=== PATIENT | female | born 1985 | race Caucasian/White ===

== ENCOUNTER 2021-11-30 15:56 | Outpatient (CLI) | payer OTHER, SELFPAY ==
[2021-11-30 16:15] LABS: Hematocrit 36.1 % (37.0-47.0); Hemoglobin 12.1 g/dL (12.0-15.0); Mean Corpuscular HGB Conc 33.5 g/dl (32-36); Mean Corpuscular Hemoglobin 33.7 pg (26-34); Mean Corpuscular Volume 100.6 fl (80-100); Mean Platelet Volume 9.7 fl (7.4-10.4); Platelet Count Result 247 k/mm3 (150-375); Red Blood Count 3.59 M/mm3 (4.2-5.4); Red Cell Distribution Width 13.1 % (11.5-14.5)
[2021-12-01 09:57] LABS: Rapid Plasma Reagin Non-Reactive (NonReactive)
== END 2021-11-30 15:57 | disposition home or self-care (01) ==
LOC: ANHLAB 15:59
PROVIDERS: PCP Internal Medicine; Visit Provider Obstetrics & Gynecology
DX: O34.219 Maternal care for unspecified type scar from previous cesarean delivery (principal); Z3A.39 39 weeks gestation of pregnancy
CPT/HCPCS: 36415; 85027; 86592; 86850; 86900; 86901

== ENCOUNTER 2021-12-01 09:41 | Inpatient (IN) | payer OTHER, SELFPAY ==
[2021-12-01] VITALS (43 sets, daily range): BP systolic 104–133; BP diastolic 64–92; PULSE 57–93; RESP 13–18; TEMP 36.1–36.6; O2SAT 97–100; BMI 33.3
--- NOTE | 2021-12-01 10:12 | P.PNAN_ITS ---
Anes - Initial Pre Proc Eval Procedure: Operation Date: 12/01/21 12:00 Proposed Procedures p Repeat Section with Bilateral Tubal Ligation - Enoch Hooks MD Date/Time: 12/01/21 10:12 Surgeon: Enoch Hooks MD Pre Op Diagnosis: C/S Patient Data Age: 36 Gender: F Height: 1.65 m Weight: 91 kg Allergies Allergy/AdvReac Type Severity Reaction Status Date / Time No Known Allergies Allergy Unverified 11/10/13 15:06 Home Medications Medication Instructions Recorded Confirmed Type PNV cmb#95-ferrous fumarate-FA 1 tablet PO DAILY 11/06/21 11/06/21 History [] Patient hx anesthesia problems: none Family hx anesthesia problems: none Results Review: All pre-operative results and documents have been reviewed as part of the pre-operative evaluation. [facility] Surgical History Surgical History History of delivery Social History Social History Smoking status: Never smoker Substance use: never Spiritual care concerns: No Anes - Eval Final PreProcedure Day of Procedure 12/01/21 10:12 Patient weight: obese Heart: regular rate and rhythm Lungs: clear to auscultation and normal air movement Airway: Mallampati scale class II Neurological: alert and oriented Last oral intake: >/= 8 hours ASA classification: II Emergent: no Anesthetic plan: proceed Anesthesia type and monitoring: regional spinal and standard monitoring Results Review: All pre-operative results and documents have been reviewed as part of the pre-operative evaluation. Informed Consent: The patient's anesthetic plan and its attendant risks and benefits were discussed with the patient/family/POA. Questions were solicited and answers provided to the satisfaction of the patient/family/POA.
--- NOTE | 2021-12-01 10:35 | LDADM ---
This patient, Tasia Grande, was admitted to Labor/Delivery/Recovery 119 on 12/01/21 at 09:41. Plans for labor, pain management and were discussed with patient. Patient/family oriented to hospital policies and general routines including ID bracelet, bed and alarms, visiting hours, pain management, procedures, bathroom and other care routines, personal items, smoking policy, room service/diet and guest tray routines, infant security routines, and visiting hours. Patient/Family are encouraged to report perceived risks to care and to ask questions if they do not understand what they are told or what they should do. See OBIX for further documentation.
[2021-12-01] MEDS: LACTATED RINGERS 250 ML 999 ML IVPB (10:44)
--- NOTE | 2021-12-01 11:25 | PM.IMHP ---
H&P: HPI History of Present Illness Date/Time: 12/01/21 11:25 36 y/o at 39 weeks gestation here for repeat . GBS neg. She desires repeat and also wants permanent contraception with tubal ligation. Chief Complaint: Here for c section Review of Systems Review of Systems: All systems reviewed & are unremarkable except as noted in HPI and below PMFSH Surgical History Surgical History History of delivery Social History Social History Smoking status: Never smoker Substance use: never Spiritual care concerns: No Meds Home Medications and Allergies Home Medications Medication Instructions Recorded Confirmed Type PNV cmb#95-ferrous fumarate-FA 1 tablet PO DAILY 11/06/21 11/06/21 History [] Allergies Allergy/AdvReac Type Severity Reaction Status Date / Time No Known Allergies Allergy Unverified 11/10/13 15:06 Vital Signs Vital Signs - 24 hr 12/01/21 10:39 12/01/21 10:45 12/01/21 11:01 Pulse Rate 89 88 93 Blood Pressure 125/79 119/65 117/78 12/01/21 11:15 Pulse Rate 78 Blood Pressure 123/69 Exam Const: Orientation/consciousness: patient oriented x3 Other: Well-developed, well-nourished female in no acute distress. Neck: Thyroid: thyroid normal Lymphatic: no lymphadenopathy noted (in neck, axilla or inguinal nodes) Resp: Effort & Inspection: normal respiratory effort Auscultation: clear to auscultation bilaterally Cardio: Rate: regular rate Rhythm: regular rhythm Heart sounds: S1 normal heart sound present and S2 normal heart sound present GI: Other: ABD: Soft, nontender, gravid. No guarding or rebound tenderness. No hepatosplenomegaly. FHR 150 bpm. : General: Yes no CVA tenderness Other: Cervix closed, thick. Back/Spine/Pelvis: Back: no CVA tenderness Skin: General skin exam: normal color and no rashes or lesions noted Neuro: General: patient oriented x3 Extrem: Other: Extremities: nontender with no edema Psych: Mental Status: mental status grossly normal Affect: normal affect Assessment and Plan Assessment and plan (1) History of delivery: Code(s): Z98.891 - History of uterine scar from previous surgery Status: Inactive Assessment and Plan: A: IUP at 39 weeks with prior , desires repeat. Desired sterility. P: She understands there are temporary methods of contraception available to her. She understands that there are nonsurgical options as well as surgical options. She understands that tubal ligation will render her permanently sterile. She understands that there is a failure rate associated with tubal ligation, as well as an inherent ectopic gestation risk. Furthermore, she understands risks of surgery to include risks of anesthesia, risks of pain, infection, bleeding, blood products, thromboembolic phenomena and damage to adjacent structures such as bowel, bladder, ureters, blood vessels and nerves. She understands all these risks and elects to proceed with repeat delivery with concurrent bilateral tubal ligation. She has received the ACOG pamphlet on surgical sterilization. (2) Unwanted fertility: Code(s): Z30.09 - Encounter for other general counseling and advice on contraception Status: Acute
--- NOTE | 2021-12-01 11:51 | WPDHPUPDATE1 ---
History and Physical Update Update Date/Time: 12/01/21 11:51 History and Physical has been reviewed, including an updated exam of the patient. There are NO changes in the patient's condition. Risks, benefits, and alternatives have been discussed and questions answered. Patient agrees to proceed with procedure.
--- NOTE | 2021-12-01 13:05 | PM.OBPRVD ---
OB - Delivery Note Procedure Delivery date: 12/01/21 Procedure: Procedures Operation Date: 12/01/21 12:00 Actual Procedure Side Surgeon p Repeat Section with Bilateral Tubal Ligation Enoch Hooks MD Delivery monitor: external FHT and external uterine Route of delivery: Specimen: Yes (cord blood) Quantitative Blood Loss (ml): 505 Anesthesia type: Spinal Disposition: PACU Complications: None Narrative: The patient was taken to the operating room where she was prepared and draped in the usual sterile fashion in dorsal supine position with a leftward tilt. She received cefazolin preoperatively. Spinal anesthesia was found to be adequate. A Pfannenstiel skin incision was made along the previous scar line and was carried through to the underlying layer of the fascia. The fascia was incised in the midline and the incision was extended laterally. The fascia was dissected free of the underlying rectus muscles. The rectus muscles were in the midline. The peritoneum was identified, tented up and entered sharply. The peritoneal incision was extended superiorly and inferiorly with good visualization of the bladder. The bladder blade was placed. The vesicouterine peritoneum was identified, tented up and entered sharply. The incision was extended laterally and the bladder flap was developed. The bladder blade was replaced. The uterus was then incised sharply in a transverse fashion along the lower uterine segment. The incision was extended laterally. The 's breech was delivered to the level of the scapulae. The arms were swept across the chest and delivered. The head was gently flexed and easily delivered. The nose and mouth were bulb suctioned. After a delay, the cord was clamped and cut. The was handed off the field. Cord blood was collected. The placenta was removed manually and was passed off the field. The uterus was exteriorized and cleared of all clots and debris. The uterine incision was reapproximated using 0 Monocryl in a running, locked fashion. A second, imbricating layer of the same suture was run. Hemaderm was applied to the bladder flap. Excellent hemostasis resulted as did excellent reapproximation of the normal anatomy. The left fallopian tube was then identified by following it out to the fimbriated end. It was grasped in the midportion with a [place] clamp and a loop of tube was ligated with a free tie of 0 plain gut. The tubal segment was then transected and the specimen was passed off to be sent to pathology. Hemostasis was excellent. Attention was turned to the right fallopian tube which was similarly identified, ligated and transected. Once again, excellent hemostasis resulted. The uterus was returned the abdomen. The pelvis was irrigated copiously with warmed normal saline. Rigorous hemostasis was assured. The fascial layer was reapproximated using 0 Vicryl in a running fashion. The skin was closed with a running, subcuticular stitch of 4 0 Vicryl. Dermaflex was applied externally. Sponge, lap, needle and instrument counts were correct. The patient was taken to the recovery room in stable condition. The infant went to the nursery in stable condition. I was present and scrubbed the entire procedure. [place] [facility] Date of : 12/01/21 Time of : 12:20 Weeks of gestation at delivery: 39 gender: Female Weight (pounds): 7 Weight (ounces): 13 presentation: breech Placenta delivery description: Manual Removal and Normal Configuration cord vessel description: 3 Vessels and Delayed Cord Clamping score one minute: 8 score five minutes: 9
--- NOTE | 2021-12-01 13:08 | PM.OBDSVD ---
DS: Admitting Diagnosis Discharge Date 12/03/21 Admitting Diagnosis IUP at 39 weeks Prior Desired sterility DS: Discharge Diagnosis Discharge Diagnosis (1) delivery delivered: Code(s): O82 - Encounter for delivery without indication Status: Acute (2) Unwanted fertility: Code(s): Z30.09 - Encounter for other general counseling and advice on contraception Status: Acute OB - DS: Summary OB Procedures : None OB Procedures Intrapartum: and Tubal ligation OB Procedures: : None Peripartum Data Procedures: Procedures Operation Date: 12/01/21 12:00 Actual Procedure Side Surgeon p Repeat Section with Bilateral Tubal Ligation Enoch Hooks MD Discharge Plan Discharge Attending physician on discharge: Enoch Hooks Discharging Clinician: Enoch Hooks Patient Disposition: Home, Self-Care Activity: may shower, may drive after 2 weeks and pelvic rest Diet: regular Wound Care Instructions: incision open to air Discharge Instructions: Education: Mom and Baby Guide Given to: Mother Follow-Up: Call your delivering provider's office for an appointment to be seen in: 1 Week Mom and baby should come to the [facility] for the follow-up appointment. Appointment Date/Time: December 05, 2021 at 11:00 am What to expect at your follow-up visit: Blood Pressure Check Physical Assessment Call [phone] if you are unable to keep your appointment time. BREAST CARE: * Wear a snug supportive bra. * For engorgement discomfort: Bottle Feeding: * May apply ice packs ABDOMINAL INCISION: (if applicable) * Allow incision to air dry * Do NOT use lotions for powders on your incision * When showering, allow soap and water to run over the incision, but do not wash incision EPISIOTOMY/PERINEAL CARE: * Until bleeding stops, use your stephani bottle after urinating * Change your pad frequently throughout the day * You may take sitz baths several times a day (fill your bathtub with warm water and soak for 20 minutes.) Do NOT bathe in the water * No tub baths until seen by your physician - You may shower ACTIVITY: * Rest as much as possible. * Do not exercise or lift anything heavier than your baby (such as laundry or other children.) * Avoid stairs or driving as much as possible. * Do not put anything into the vagina. No douching, tampons, or sexual activity until seen by physician. NOTIFY PHYSICIAN IF YOU HAVE ANY QUESTIONS OR IF ANY OF THE FOLLOWING SYMPTOMS OCCUR: * If your incision becomes red, swollen, or more painful than what you have experienced in the hospital. * If your vaginal bleeding becomes foul smelling. * If your vaginal bleeding becomes more heavy than a period or if your bleeding changes from the color it is now to bright crayon red . However, you may pass an occasional walnut-sized clot once or twice for the first week . * If you experience a sharp, shooting pain in your calves. * If you discover a hard, reddened area on your breast or if you experience flu-like symptoms. DIET: * Eat regular, well-balanced meals. * Drink plenty of fluids daily. Call or return if temperature above 100.4? F, increased abdominal pain, increased vaginal bleeding or any new problems. Patient Instructions: Caring for Your Baby (DC) Stand Alone Forms: General Discharge Information Follow-up/Referrals: Enoch Hooks MD [Physician] - 4 Weeks Discharge Medications: New ibuprofen 600 mg tablet 600 mg PO Q6H PRN (Reason: cramps) Qty: 30 RF: 0 hydrocodone-acetaminophen 5-325 mg tablet 1 - 2 tablet PO Q6H Qty: 30 RF: 0 Continued PNV cmb#95-ferrous fumarate-FA [] 28 mg iron- 800 mcg Tablet 1 tablet PO DAILY RF: 0 Date of admission: 12/01/21 09:41 Primary Care Provider: Erna,Scott Palumbo Admitting Provider: Enoch Hooks
[2021-12-01] MEDS: KETOROLAC 30 MG/ML VIAL (*BKC) IM (13:27)
[2021-12-01] MEDS: OXYTOCIN 30 UNITS/NS 500 ML 30 UNITS/500 ML BAG 125 UNITS IV CONT (13:34)
--- NOTE | 2021-12-01 15:17 | PC.NURSE ---
Patient transferred to post room #284 per stretcher. Support person present. Oriented to unit, room, information board, rooming in, admission packet and security measures. Patient verbalizes understanding.
[2021-12-01] MEDS: HYDROcodone/acetaminophen (*CRX) 5-325 MG TABLET 1 TAB PO (16:13)
[2021-12-01] MEDS: DOCUSATE SODIUM 100 MG CAPSULE PO (19:15)
[2021-12-01] MEDS: SIMETHICONE 80 MG TAB.CHEW PO (19:15)
[2021-12-01] MEDS: HYDROcodone/acetaminophen (*CRX) 10-325 MG TABLET 1 TAB PO ×2 (19:15→23:22)
[2021-12-01] MEDS: IBUPROFEN 600 MG TABLET PO (19:16)
[2021-12-02] VITALS: BP 114/72; PULSE 70; RESP 18; TEMP 36.9
[2021-12-02] MEDS: HYDROcodone/acetaminophen (*CRX) 10-325 MG TABLET 1 TAB PO ×5 (03:18→23:20)
[2021-12-02] MEDS: IBUPROFEN 600 MG TABLET PO ×3 (03:18→18:52)
[2021-12-02 04:11] VITALS: BP 102/60; PULSE 84; RESP 18; TEMP 36.9
[2021-12-02 04:18] LABS: Basophils Percent Auto 0.4 % (0.2-1.2); Eosinophils Absolute Auto 0.1 K/mm3 (0-0.3); Eosinophils Percent Auto 1.2 % (0-4.4); Hematocrit 29.9 % (37.0-47.0); Hemoglobin 10.1 g/dL (12.0-15.0); Immature Granulocyte Absolute 0.03 K/mm3 (0.00-0.031); Immature Granulocyte Percent A 0.3 % (0-0.5); Lymphocytes Absolute Auto 1.73 K/mm3 (0.9-3.2); Lymphocytes Percent Auto 18.2 % (18.3-44.2); Mean Corpuscular HGB Conc 33.8 g/dl (32-36); Mean Corpuscular Hemoglobin 34.2 pg (26-34); Mean Corpuscular Volume 101.4 fl (80-100); Mean Platelet Volume 10.2 fl (7.4-10.4); Monocytes Absolute Auto 0.6 K/mm3 (0.1-0.6); Monocytes Percent Auto 6.3 % (2.6-8.5); Neutrophils Percent Auto 73.6 % (45.5-73.1); Platelet Count Result 206 k/mm3 (150-375); Red Blood Count 2.95 M/mm3 (4.2-5.4); Red Cell Distribution Width 13.3 % (11.5-14.5); White Blood Count 9.5 K/mm3 (4.5-10.0)
[2021-12-02] MEDS: SIMETHICONE 80 MG TAB.CHEW PO ×3 (06:56→15:27)
[2021-12-02] MEDS: DOCUSATE SODIUM 100 MG CAPSULE PO ×2 (06:57→18:52)
[2021-12-02 07:15] VITALS: BP 102/69; PULSE 75; RESP 16; RESP 18; TEMP 36.9; O2SAT 98
--- NOTE | 2021-12-02 08:45 | PM.OBPNVD ---
OB - PN: Subj Subjective Date/time seen: 12/02/21 08:45 Narrative: Pain OK. Tolerating diet. OB - PN: Obj Data Labs CBC & Chem 7: 12/02/21 03:20 Labs: Laboratory Results - last 24 hr 12/02/21 03:20 WBC 9.5 RBC 2.95 L Hgb 10.1 L Hct 29.9 L MCV 101.4 H MCH 34.2 H MCHC 33.8 RDW 13.3 Plt Count 206 MPV 10.2 Immature Gran % (Auto) 0.3 Neut % (Auto) 73.6 H Lymph % (Auto) 18.2 L [place] % (Auto) 6.3 Eos % (Auto) 1.2 Baso % (Auto) 0.4 Lymph # (Auto) 1.73 [place] # (Auto) 0.6 Eos # (Auto) 0.1 Baso # (Auto) 0.0 Abs Immat Gran (auto) 0.03 Absolute Neuts (auto) 7.0 H Absolute Nucleated RBC 0.0 Nucleated RBC % 0.0 OB - PN A/P Plan Comments: A: POD#1, doing well. P: Routine care. Exam Narrative: AVSS I/O OK ABD soft, nontender, fundus firm. Incision c/d/i. EXT nontender
--- NOTE | 2021-12-02 08:49 | WPDANLDPN2 ---
Anes-Prog Note L&D Date/Time: 12/02/21 08:49 Comfortable throughout: section Neuraxial method: spinal Epidural/Spinal procedure site: clean & non-tender Neuro status: Neuro function grossly intact. Cardiovascular status: normal Respiratory status: normal Airway patency: baseline Mental status: baseline Post-Op hydration status: normal Vital Signs: Last Vital Signs Temp 98.4 F 12/02/21 07:15 Pulse 75 12/02/21 07:15 Resp 16 12/02/21 07:15 BP 102/69 12/02/21 07:15 Pulse Ox 98 12/02/21 07:15 Pain score (VAS): 0 I/O: Intake & Output 12/01/21 12/02/21 12/02/21 23:59 07:59 15:59 Intake Total 900 1000 Output Total 325 550 Balance 575 450 Post-procedural complaints: pruritis mild, no treatment and other (pt unable to void) Patient feedback: Patient satisfied with anesthetic care.
--- NOTE | 2021-12-02 08:50 | WPDANLDNPN2 ---
Anes-Prog Note L&D-Neuraxial Date/Time: 12/02/21 08:50 Neuraxial medications: intrathecal PF morphine Opiod-related complaints: pruritis mild, no treatment Patient feedback: Patient satisfied with post-operative pain management.
[2021-12-02] MEDS: HYDROcodone/acetaminophen (*CRX) 5-325 MG TABLET 1 TAB PO (10:55)
[2021-12-02 12:30] VITALS: BP 99/67; PULSE 75; PULSE 85; RESP 16; RESP 18; TEMP 36.6; O2SAT 98
[2021-12-02 19:00] VITALS: BP 121/83; PULSE 95; RESP 16; TEMP 36.2
[2021-12-03] MEDS: HYDROcodone/acetaminophen (*CRX) 5-325 MG TABLET 1 TAB PO ×2 (03:10→10:43)
[2021-12-03] MEDS: IBUPROFEN 600 MG TABLET PO ×2 (03:10→10:43)
[2021-12-03 07:15] VITALS: PULSE 102; RESP 16; O2SAT 98
[2021-12-03 08:00] VITALS: BP 133/90; PULSE 102; RESP 16; TEMP 36.3
--- NOTE | 2021-12-03 10:12 | PM.OBPNVD ---
OB - PN: Subj Subjective Date/time seen: 12/03/21 10:12 Narrative: Pain OK. Tolerating diet. Urinary retention resolved after one catheterization. Voiding freely now. Would like to go home. OB - PN: Obj Data Labs CBC & Chem 7: 12/02/21 03:20 OB - PN A/P Plan Comments: A: POD#2, doing well. P: Home to f/u 4 weeks. Exam Narrative: AVSS ABD soft, nontender, fundus firm. Incision c/d/i. EXT nontender
[2021-12-03] MEDS: SIMETHICONE 80 MG TAB.CHEW PO (10:43)
[2021-12-05 11:20] VITALS: BP 145/86; PULSE 72; RESP 20; TEMP 36.8; O2SAT 100
== END 2021-12-03 11:10 | disposition home or self-care (01) | DRG 785 ==
LOC: ANHLDR 13:10 → ANHOB2 15:24
PROVIDERS: Admitting Provider Obstetrics & Gynecology; PCP Internal Medicine; Visit Provider Obstetrics & Gynecology
PROC: 10D00Z1 Extraction of Products of Conception, Low, Open Approach (ICD-10-PCS; CPT 59514; principal; 2021-12-01 12:00)
DX: O34.219 Maternal care for unspecified type scar from previous cesarean delivery (principal); Z30.2 Encounter for sterilization; O32.1XX0 Maternal care for breech presentation, not applicable or unspecified; Z3A.39 39 weeks gestation of pregnancy; Z37.0 Single live birth
CPT/HCPCS: 36415; 85025; 85027; 86592; 86850; 86900; 86901; 88302; A9270; J0131; J1885; J2274; J2370; J2405; J2590; J7120

== ENCOUNTER 2023-06-21 14:31 | Outpatient (CLI) | payer OTHER, SELFPAY ==
--- NOTE | 2023-06-21 15:18 | PCRCNOTE ---
PFT TESTING NOT COMPLETED TODAY. PT HAS BEEN TAKING PREDNISONE PO SINCE 06/03. SHE WILL FINISH HER LAST DOSE 06/26. PT CONCERNED OF INACCURATE PFT RESULTS DUE TO THE PRESENT STEROID USE. STATED PREDNISONE MAY MASK UNDERLINING LUNG FUNCTION ABNORMALITIES AND BEST TO COMPLETE PFT WITHOUT IF POSSIBLE. CALLED DR SARMIENTO, SPOKE TO NEHA MCKENZIE, WE RESCHEDULED HER PFT ON 07/17 AT 9:30 AND REQUESTED A NEW PFT ORDER TO INCLUDE BRONCHODILATOR TO ASSESS AIRWAY REVERSIBILITY
== END 2023-06-21 14:32 | disposition home or self-care (01) ==
LOC: ANHPFT 14:31
PROVIDERS: PCP Nurse Practitioner Family; Visit Provider Physician Assistant Medical
DX: J45.909 Unspecified asthma, uncomplicated (principal)
CPT/HCPCS: 99199

== ENCOUNTER → 2023-07-05 11:09 | Outpatient (CLI) | payer OTHER, SELFPAY ==
--- NOTE | ~2023-07-05 | CT_ITS ---
EXAMINATION: CT sinus wo con DATE: 07/05/2023 11:26 INDICATION: Chronic sinusitis TECHNIQUE: Computed tomography (CT) of the paranasal sinuses was performed without intravenous contra st. The dose-length product (DLP) was 288.85 mGy-cm. Iterative reconstruction was used. COMPARISON: None FINDINGS: Pansinus moderate mucosal thickening. Complete opacification of the right frontal sinus. Hy perdense material present in the lumen of the right frontal, several ethmoid, and left maxillary sinu ses. Aerated secretion/small air-fluid level in the left maxillary sinus. The bilateral ostiomeatal c omplexes are opacified/obstructed. Visualized soft tissues are unremarkable. IMPRESSION: Acute on chronic pansinusitis. Bilateral OMU opacification/obstruction. Reviewed, dictated and finalized at location K.
== END ==
PROVIDERS: PCP Physician Assistant Medical; Visit Provider Allergy & Immunology
DX: J32.9 Chronic sinusitis, unspecified (principal)
CPT/HCPCS: 70486

== ENCOUNTER 2023-07-17 09:19 | Outpatient (CLI) | payer OTHER, SELFPAY ==
--- NOTE | 2023-07-17 13:43 | WPDPFTINT ---
PFT Procedure Performed PFT Procedure Performed Spirometry with Pre/Post Bronchodilator Plethysmography (Lung Vol) Diffusing Cap (DLCO) Flow Vol Loop PFT Interpretation This is a pulmonary function test with pre and post-bronchodilator spirometry, plethysmography and diffusing capacity. The test was performed and results interpreted in accordance with the 2019 and 2005 ATS/ERS Task Force guidelines respectively using the Global Lung Function Initiative-2012 reference equations. Patient demonstrated good effort and cooperation. Reproducibility criteria were met. The quality of the pre bronchodilator spirometry maneuver was Grade A and post bronchodilator spirometry maneuver was Grade A. Findings: Spirometry: There is decreased maximal expiratory airflow at all lung volumes with concave expiratory flow tracing. The contour the inspiratory flow tracing is normal. The pre bronchodilator FVC is 3.42 L, 89% predicted. The pre bronchodilator FEV1 is 2.24 L, 71% predicted. The pre bronchodilator FEV1: FVC ratio 66%. The post bronchodilator FVC is 3.55 L, representing a 4% increase. The post bronchodilator FEV1 is 2.31 L, representing a 3% increase. The post bronchodilator FEV1: FVC ratio 65%. Plethysmography: The total lung capacity is 4.48 L, 86% predicted. The functional residual capacity is 2.21 L, 77% predicted. The residual volume is 1.06 L, 66% predicted. Diffusing capacity: The diffusing capacity unadjusted for hemoglobin and carboxyhemoglobin is 26.7, 109% predicted. The diffusing capacity adjusted for alveolar volume is 4.72, 100% predicted. Impression: There is a mild obstructive abnormality without significant improvement after inhaling a single dose of albuterol. The lung volumes are normal. The diffusing capacity is normal. There are no prior studies for comparison
== END 2023-07-17 09:20 | disposition home or self-care (01) ==
PROVIDERS: PCP Physician Assistant Medical; Visit Provider Physician Assistant Medical
DX: J45.909 Unspecified asthma, uncomplicated (principal)
CPT/HCPCS: 94060; 94726; 94729

== ENCOUNTER 2023-09-12 13:17 | Outpatient (CLI) | payer OTHER, SELFPAY ==
--- NOTE | 2023-09-12 13:26 | ECG_ITS ---
Measurements Intervals [place] Rate: 74 P: 50 FL: 124 QRS: 29 QRSD: 90 T: 22 QT: 378 QTc: 422 Interpretive Statements SINUS RHYTHM BASELINE ARTIFACT NORMAL ECG NO PREVIOUS ECG AVAILABLE FOR COMPARISON Electronically Signed On 09-12-2023 17:23:25 CDT by Crow Judd M.D.
== END 2023-09-12 13:18 | disposition home or self-care (01) ==
PROVIDERS: PCP Physician Assistant Medical; Visit Provider Otolaryngology
DX: I10 Essential (primary) hypertension (principal); Z01.818 Encounter for other preprocedural examination
CPT/HCPCS: 93005

== ENCOUNTER 2023-09-17 01:44 | Day surgery (SDC) | payer OTHER, SELFPAY ==
[2023-09-06 10:42] VITALS: BMI 24.1
--- NOTE | 2023-09-06 10:47 | PC.NURSE ---
Report to the Outpatient Waiting Room, entrance under the green pavilion located off [facility], at time _0630_ on date _[id number]_. Planned Procedure Time: _0830_. Time changes happen often and if your time is changed the preop area will call you the afternoon before. - You and your visitor will be asked to self-screen and do not enter if you have any COVID symptoms. - A mask is optional within the hospital at this time. Patients may have clear liquids (water, carbonated beverages, clear teas, apple juice) until 3 hours prior to surgery with a maximum of 20 ounces. - No food from midnight until time of surgery Take the following medications with a SIP of water the morning of surgery: __Lexapro DO NOT STOP ANY OF YOUR OTHER PRESCRIPTION MEDICATIONS PRIOR TO SURGERY ?EXCEPT THE FOLLOWING Medications to discontinue per physician Ozempic Date to take last [id number] Please no make-up, nail latvian, hairspray, perfume, deodorant, or body powder the day of surgery. No jewelry (including any body piercings) or valuables the day of surgery, leave them at home. Please take a shower or bath the night before, or the morning of, surgery with an antibacterial soap. Wear comfortable, loose fitting clothing. - Jewelry must be removed prior to entering the operating room. Rings and piercings that are not removed may be cut off. - The hospital will not accept responsibility for valuables. - Please leave all valuables, including medications, at home the day of surgery. If you are going home after surgery, a licensed route delivery driver must drive you home. - NO public transportation without another adult if you receive anesthesia. - We recommend that an adult stay with you for 24 hours following discharge. - We also recommend that you do not drive, make important decision, drink alcoholic beverages, or take any drugs that were not prescribed by your health care provider for at least 24 hours after your discharge time. Follow any additional instructions given to you from your surgeon. If you or anyone in your household have experienced Covid symptoms in the past week, please notify your surgeon or the nurse liaison at the phone number below for possible testing. Telephone instructions given to _Tasia___and asked if any additional questions and then verbalized understanding. Patient advised to call surgeon office or pre surgery nurse liaison [phone] if any additional questions.
--- NOTE | 2023-09-16 13:47 | WPDANESEPPF ---
Anes - Initial Pre Proc Eval Procedure: Operation Date: 09/17/23 08:30 Proposed Procedures p Endoscopic Septoplasty, - Minh Jeronimo MD s Bilateral Inferior Turbinectomy with Outfracture, Bilateral Maxillary Antrostomy with Tissue Removal, Bilateral Total Ethmoidectomy, Bilateral Sphenoidotomy, Bilateral Frontal Sinusotomy - Minh Jeronimo MD Date/Time: 09/16/23 13:47 Surgeon: Minh Jeronimo MD Pre Op Diagnosis: chronic sinusitis Patient Data Age: 37 Gender: F Height: 1.65 m Weight: 65.9 kg Allergies Allergy/AdvReac Type Severity Reaction Status Date / Time No Known Allergies Allergy Verified 09/17/23 06:28 Home Medications Medication Instructions Recorded Confirmed Type escitalopram oxalate 20 mg tablet 20 mg PO DAILY 11/22/22 09/06/23 History (Lexapro) albuterol sulfate 90 mcg/actuation 1 inh inhalation Q4H PRN shortness 05/02/23 09/06/23 Rx aerosol inhaler of breath or wheezing #6.7 grams montelukast 10 mg tablet 10 mg PO DAILY #30 tabs 05/23/23 09/06/23 Rx (Singulair) budesonide-formoterol HFA 160 See Rx Instructions .Route 06/17/23 09/06/23 Rx mcg-4.5 mcg/actuation aerosol .COMPLEX #10.2 grams inhaler (Symbicort) semaglutide 1 mg/dose (4 mg/3 mL) 1 mg (0.75 mL) subcut WEEKLY #3 mL 07/01/23 09/06/23 Rx subcutaneous pen injector (Ozempic) losartan 25 mg tablet 25 mg PO DAILY #90 tabs 07/09/23 09/06/23 Rx doxycycline hyclate 100 mg capsule 100 mg PO DAILY #14 caps 09/12/23 Rx prednisone 5 mg tablet 5 mg PO DAILY #14 tabs 09/12/23 Rx Patient hx anesthesia problems: none Family hx anesthesia problems: none Results Review: All pre-operative results and documents have been reviewed as part of the pre-operative evaluation. [facility] Past Medical History Medical History Allergies Anxiety Asthma Hypertension URI (upper respiratory infection) Weight loss counseling, encounter for Wheezing Surgical History Surgical History History of delivery Family History Family History (Updated 07/18/23 @ 09:38 by Marisa Arredondo CMA) Mother Hypertension Depression COPD (chronic obstructive pulmonary disease) Grandparent Hypertension Cerebrovascular accident Depression Grandparent Hypertension Cerebrovascular accident Social History Social History Smoking packs per day: 1 Smoking cigarettes per day: 20.0 Years smoked: 10 Smoking pack-years: 10.00 Smoking status: Former smoker Tobacco type: cigarettes Smoking end date: 09/06/21 Alcohol intake: current Substance use: never Lack of Transportation: No Lack of Food: Never True Current Housing: I Have Housing Concerned About Future Housing: No Difficulty Paying Gas/Electric Bills: No Difficulty Paying for Meds: No Currently Unemployed: No Education: Don't Know Difficulty w/ Childcare or Family Care: No Living arrangements: with family Occupation/Education: occupation Additional occupation/education comments: [employer] for [employer] concerns: No Agree to blood products: Yes Anes - Eval Final PreProcedure Day of Procedure 09/16/23 13:47 Patient weight: normal Heart: regular rate and rhythm Lungs: clear to auscultation Airway: Mallampati scale class II Neurological: alert and oriented Last oral intake: >/= 8 hours ASA classification: II Emergent: no Anesthetic plan: proceed Anesthesia type and monitoring: general ETT and standard monitoring Results Review: All pre-operative results and documents have been reviewed as part of the pre-operative evaluation. Informed Consent: The patient's anesthetic plan and its attendant risks and benefits were discussed with the patient/family/POA. Questions were solicited and answers provided to the satisfaction of the patient/family/PO
--- NOTE | 2023-09-16 17:34 | PM.IMHP ---
H&P: HPI History of Present Illness Date/Time: 09/16/23 17:34 Chief Complaint: chronic sinusitis recurrent sinusitis septal deviation turbinate hypertrophy Narrative: planned procedure Review of Systems Review of Systems: All systems reviewed & are unremarkable except as noted in HPI and below [facility] Past Medical History Medical History Allergies Anxiety Asthma Hypertension URI (upper respiratory infection) Weight loss counseling, encounter for Wheezing Surgical History Surgical History History of delivery Family History Family History (Updated 07/18/23 @ 09:38 by Marisa Arredondo CMA) Mother Hypertension Depression COPD (chronic obstructive pulmonary disease) Grandparent Hypertension Cerebrovascular accident Depression Grandparent Hypertension Cerebrovascular accident Social History Social History Smoking packs per day: 1 Smoking cigarettes per day: 20.0 Years smoked: 10 Smoking pack-years: 10.00 Smoking status: Former smoker Tobacco type: cigarettes Smoking end date: 09/06/21 Alcohol intake: current Substance use: never Lack of Transportation: No Lack of Food: Never True Current Housing: I Have Housing Concerned About Future Housing: No Difficulty Paying Gas/Electric Bills: No Difficulty Paying for Meds: No Currently Unemployed: No Education: Don't Know Difficulty w/ Childcare or Family Care: No Living arrangements: with family Occupation/Education: occupation 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 [employer] concerns: No Agree to blood products: Yes Meds Home Medications and Allergies Home Medications Medication Instructions Recorded Confirmed Type escitalopram oxalate 20 mg tablet 20 mg PO DAILY 11/22/22 09/06/23 History (Lexapro) albuterol sulfate 90 mcg/actuation 1 inh inhalation Q4H PRN shortness 05/02/23 09/06/23 Rx aerosol inhaler of breath or wheezing #6.7 grams montelukast 10 mg tablet 10 mg PO DAILY #30 tabs 05/23/23 09/06/23 Rx (Singulair) budesonide-formoterol HFA 160 See Rx Instructions .Route 06/17/23 09/06/23 Rx mcg-4.5 mcg/actuation aerosol .COMPLEX #10.2 grams inhaler (Symbicort) semaglutide 1 mg/dose (4 mg/3 mL) 1 mg (0.75 mL) subcut WEEKLY #3 mL 07/01/23 09/06/23 Rx subcutaneous pen injector (Monitor110empic) losartan 25 mg tablet 25 mg PO DAILY #90 tabs 07/09/23 09/06/23 Rx doxycycline hyclate 100 mg capsule 100 mg PO DAILY #14 caps 09/12/23 Rx prednisone 5 mg tablet 5 mg PO DAILY #14 tabs 09/12/23 Rx Allergies Allergy/AdvReac Type Severity Reaction Status Date / Time No Known Allergies Allergy Unverified 09/06/23 10:40 Exam Narrative: chronic appearing sinuses septal deviation turbinate hypertrophy Assessment and Plan Assessment and plan (1) Hypertrophy of both inferior nasal turbinates: Code(s): J34.3 - Hypertrophy of nasal turbinates Status: Acute Assessment and Plan: plan OR image guided endoscopic bilateral maxillary antrostomies total ethmoids sphenoidotomies frontal sinusotomies. Frontals and left max likely with tissue removal endoscopic assisted septoplasty turbinate reduction with outfracture bilaterally. Middleurbinectomies. Risks were discussed including bleeding infection damage to any structure of the clavicle by myself damage to any structure during induction and maintenance of anesthesia including vocal cord paralysis. Septal perforation. Re hypertrophy of the turbinates. Brain brain damage CSF leak need for further procedures. Change in vision total blindness. Failure to resolve symptoms. Prolonged course of antibiotics. (2) Nasal septal deviation: Code(s): J34.2 - Deviated nasal septum Statu
[2023-09-17] VITALS (9 sets, daily range): BP systolic 103–127; BP diastolic 66–87; PULSE 75–102; RESP 10–17; TEMP 36.4–37.1; O2SAT 94–100
[2023-09-17] MEDS: ACETAMINOPHEN 500 MG TABLET 1000 MG PO (06:31)
[2023-09-17] MEDS: LACTATED RINGERS 1,000 ML 30 ML IV CONT ×2 (06:50→13:27)
--- NOTE | 2023-09-17 07:15 | WPDHPUPDATE1 ---
History and Physical Update Update Date/Time: 09/17/23 07:15 History and Physical has been reviewed, including an updated exam of the patient. There are NO changes in the patient's condition. Risks, benefits, and alternatives have been discussed and questions answered. Patient agrees to proceed with procedure.
[2023-09-17] MEDS: ceFAZolin 2 GM/D5W 50 ML 2 GM/50 ML BAG IVPB (08:57)
[2023-09-17] MEDS: LIDO 1%/EPINEPHRINE 1:100,000 50 ML VIAL INFILTRATE (09:30)
[2023-09-17] MEDS: OXYMETAZOLINE HCL 0.05% NAS 15 ML BTL (*BKC) 1 SPRAY NASAL (09:31)
[2023-09-17] MEDS: fentaNYL CITRATE INJ (*CRX) 100 MCG/2 ML VIAL 25 MCG IV PUSH ×2 (13:53→13:56)
--- NOTE | 2023-09-17 13:54 | P.OP_ITS ---
Procedure Note - Detailed Date of Procedure 09/17/23 Pre-op Diagnosis chronic sinusitis, recurrent sinusitis Post-op Diagnosis Same Procedure Performed Bilateral image guided endoscopic maxillary antrostomy, total ethmoidectomy, sphenoidotomy, frontal sinusotomy, left side with drill out, placement of propel stents bilaterally, bilateral middle turbinectomies Surgeon Minh Jeronimo MD Anesthesia General Indications See above Findings Copious amounts of purulence and all the aforementioned sinus really edematous tissue. Left max had the most disease. Really narrow left frontal outflow thinned lamina on that side this was inadvertently cracked or cracked begin with because the disease. No exposed orbital content. All sinuses adequately open. Middle turbinates removed for access as they were essentially scarred over because of the purulence bilaterally. Description of Procedure Patient identified consent verified preop. Patient brought to the operating room. Time-out performed. General anesthesia induced endotracheal tube secured airway. Patient prepped draped positioned. Image guidance initiating confirmed. Procedure confirmed. Second time-out performed. Afrin-soaked pledgets placed in bilateral nasal passages and allowed to sit for 5 minutes. Afrin-soaked pledgets then removed. 0 degree scope endoscope utilized. Middle turbinates injected with 1 cc each 1% lidocaine 1 100,000 parts epinephrine they were then removed with a straight through cut and Bovie suction electrocautery to cauterize the stumps. Maxillary antrostomies were performed bilaterally with microdebrider double ball tip probe straight through cut and backbiter. Great care was taken to ensure that the surgical os connected the natural os. Total ethmoidectomies performed with image guidance Kerrison and microdebrider. Sphenoidotomy performed with sphenoid punch image guidance and Kerrison as well as microdebrider. Frontal sinus sinusotomies performed with image guidance frontal sinus seeker front to back and [id number] draft [facility] instrument Anamika are pedro luisry [facility] instrument. Red 60. Rad 60. A drill 70 degree angled on the left frontal sinus was also utilized. It was noted that the orbit was dehiscent at this portion orbital contents were present. Propel stents were placed bilaterally the frontal sinus outflow tracts. No pack was placed bilaterally. The wound was copiously irrigated sterile normal saline. Total blood loss about 100-125 cc. I performed all dictated portions of procedure. There were no complications. Care the patient given back to Anesthesiology. There is no bruising today indicating orbital injury intraop. The patient had excellent vision postoperatively. And extraocular movements were intact Estimated Blood Loss -100.0 Drains No Packing Yes (bubbak) Pathology None sent Complications No immediate complications Condition Stable Disposition PACU [facility] Billing Surgery - Charge Forward: Surgery Billing
[2023-09-17] MEDS: ONDANSETRON INJ 4 MG/2 ML VIAL IV PUSH (14:01)
--- NOTE | 2023-09-17 14:06 | SUR.PHASEI ---
1357: Simple mask removed.
[2023-09-17] MEDS: SCOPOLAMINE 1.5 MG PATCH TRANSDERM (14:26)
[2023-09-17] MEDS: diphenhydrAMINE HCl INJ 50 MG/ML VIAL 25 MG IV PUSH (14:27)
[2023-09-17] MEDS: oxyCODONE HCL (*CRX) 5 MG TAB IR PO (15:00)
== END 2023-09-17 15:50 | disposition home or self-care (01) ==
PROVIDERS: PCP Physician Assistant Medical; Visit Provider Otolaryngology
PROC: (CPT 31257; 2023-09-17 08:30)
DX: J32.9 Chronic sinusitis, unspecified (principal); J34.3 Hypertrophy of nasal turbinates; J34.2 Deviated nasal septum; I10 Essential (primary) hypertension; F41.9 Anxiety disorder, unspecified; J45.909 Unspecified asthma, uncomplicated; Z87.891 Personal history of nicotine dependence; Z79.51 Long term (current) use of inhaled steroids; Z79.85 Long-term (current) use of injectable non-insulin antidiabetic drugs
CPT/HCPCS: 31257; 31276; 31256; 61782; 93005; A9270; C2625; J0690; J1100; J1170; J1200; J2250; J2405; J2704; J3010; J7120

== ENCOUNTER 2023-12-20 08:20 | Outpatient (CLI) | payer OTHER, SELFPAY ==
--- NOTE | ~2023-12-20 | CT_ITS ---
EXAMINATION: CT sinus wo con DATE: 12/20/2023 08:57 INDICATION: Sinusitis TECHNIQUE: Computed tomography (CT) of the paranasal sinuses was performed without intravenous contra st. The dose-length product was 402.94 mGy-cm. Automated exposure control and iterative reconstructio n technique were employed. COMPARISON: CT dated 07/05/2023 FINDINGS: There is extensive mucosal thickening of the maxillary, ethmoid, sphenoid and frontal sinus es. There are surgical changes bilaterally involving the ostiomeatal units. There is mild mucoperiost eal reaction bilaterally. No significant nasal septal deviation. Mastoids are pneumatized. IMPRESSION: 1. Chronic pansinusitis. Reviewed, dictated and finalized at location B. R SYSTEMS ENGINEER IMPRESSION: 1. Chronic pansinusitis.
== END 2023-12-20 08:21 ==
PROVIDERS: PCP Family Medicine; Visit Provider Otolaryngology
DX: J34.89 Other specified disorders of nose and nasal sinuses (principal); J32.9 Chronic sinusitis, unspecified
CPT/HCPCS: 70486

== ENCOUNTER 2023-12-30 11:01 | Outpatient (CLI) | payer OTHER, SELFPAY ==
[2023-12-30 11:37] LABS: Appearance Urine Clear (Clear); Bacteria Urine None Seen /hpf; Bilirubin Urine Negative (Negative); Blood Urine 2+ (Negative); Color Urine Yellow (Yellow); Glucose Urine UA Negative (Negative); Ketones Urine Negative (Negative); Leukocyte Esterase Ur Negative LEU/UL (Negative); Nitrate Urine Negative (Negative); Non Pathogenic Casts 0-2; Protein Urine Negative (Negative); RBC Urine 0-2 /hpf (0-2); Specific Grav Ur 1.011 (1.001-1.035); Squamous Epithelial Cell Urine Occasional /hpf (Few); Urobilinogen Urine 0.2 mg/dL (<2.0); WBC Urine 0-5 /hpf
[2023-12-30 11:57] LABS: Add Urine Microscopic? YES
== END 2023-12-30 11:02 | disposition home or self-care (01) ==
LOC: ANHLAB 11:04
PROVIDERS: PCP Family Medicine; Visit Provider Internal Medicine Pulmonary Disease
DX: J32.9 Chronic sinusitis, unspecified (principal); R31.9 Hematuria, unspecified
CPT/HCPCS: 81001

== ENCOUNTER 2024-01-06 12:53 | Emergency (ER) | payer OTHER, SELFPAY ==
[2024-01-06] VITALS (9 sets, daily range): BP systolic 98–120; BP diastolic 61–83; PULSE 106–125; RESP 18–30; TEMP 36.7–36.8; O2SAT 95–100
--- NOTE | ~2024-01-06 | US_ITS ---
EXAMINATION: US thoracentesis DATE: 01/06/2024 17:03 INDICATION: pleural effusion TECHNIQUE: The procedure and its risks, benefits, and alternatives were discussed with the patient. P otential risks discussed included bleeding, infection, and pneumothorax. The patient understood the r isks and agreed to proceed. The skin was prepped and draped in sterile fashion. 1% lidocaine was used for local anesthesia. Under ultrasound guidance, a 5 Fr catheter with trochar was advanced into the left pleural effusion. Fluid was aspirated. The catheter was removed, and a dressing was applied. The re were no immediate complications. FINDINGS: Ultrasound images demonstrate a left pleural effusion and the catheter within the fluid. IMPRESSION: 1. Successful ultrasound-guided thoracentesis yielding 1000 mL of opaque, yellow-green fluid. Reviewed, dictated and finalized at location A. OGRAPHIC MATERIALS CONSERVATOR IMPRESSION: 1. Successful ultrasound-guided thoracentesis yielding 1000 mL of opaque, yell ow-green fluid.
--- NOTE | ~2024-01-06 | XR_ITS ---
EXAMINATION: XR chest 2V DATE: 01/06/2024 15:22 INDICATION: Weakness. Fatigue. TECHNIQUE: Frontal and lateral views of the chest were obtained on 3 radiographs. COMPARISON: Chest 2 views 06/03/2023 FINDINGS: There is a large left pleural effusion. There are airspace opacities in right middle lobe a nd at left lung base. No pneumothorax. The heart size is obscured. IMPRESSION: 1. Large left pleural effusion. 2. Airspace opacities in right middle lobe and at left lung base, consistent with atelectasis versus pneumonia. Reviewed, dictated and finalized at location A. NED GIVING OFFICER IMPRESSION: 1. Large left pleural effusion. 2. Airspace opacities in right middle lobe and at left lung base, consistent wi th atelectasis versus pneumonia.
--- NOTE | ~2024-01-06 | CT_ITS ---
EXAMINATION:CT diagnostic chest wo con DATE: 01/06/2024 16:50 INDICATION: Pleural effusion. Shortness of breath. TECHNIQUE: Computed tomography (CT) of the chest was performed without intravenous contrast. Automate d exposure control and iterative reconstruction technique were employed. The dose-length product (DLP ) was 130.07 mGy-cm. COMPARISON: Chest 2 views 01/06/2024 FINDINGS: There are patchy airspace opacities and groundglass opacities in all lobes. There are scatt ered centrilobular nodules in right upper lobe and right lower lobe. There are airspace opacities wit h volume loss in right middle lobe and right lower lobe. There is a moderate-sized left pleural effus ion. There is mild mediastinal lymphadenopathy, likely reactive. The heart size is normal. No pericar dial effusion. Breast implants are noted. The bones are unremarkable. IMPRESSION: 1. Multifocal pneumonia. 2. Moderate-sized left pleural effusion. 3. Mild mediastinal lymphadenopathy, likely reactive. Reviewed, dictated and finalized at location A. ER FITTER APPRENTICE
--- NOTE | 2024-01-06 14:47 | ECG_ITS ---
Measurements Intervals [place] Rate: 122 P: 55 W[place]: 116 QRS: 42 QRSD: 91 T: 46 QT: 317 QTc: 453 Interpretive Statements SINUS TACHYCARDIA MINOR NONSPECIFIC ST SEGMENT ABNORMALITY ABNORMAL ECG COMPARED TO ECG 09/12/2023 13:31:42 HEART RATE INCREASED Electronically Signed On 01-06-2024 15:17:25 CHIEF PROJECTIONIST by Jamison Greer M.D.
--- NOTE | 2024-01-06 14:50 | ED.GENADULT ---
HPI - General Adult General Chief complaint: Unspecified <Emely Clark PA-C - Last Filed: 01/06/24 15:50> Stated complaint: multiple complaints <Emely Clark PA-C - Last Filed: 01/06/24 15:50> Time Seen by Provider: 01/06/24 14:45 <Emely Clark PA-C - Last Filed: 01/06/24 15:50> Focused HPI: Patient is a 38 y/o female who presents to the ED with multiple complaints. Patient has hx of chronic sinusitis, colonized with Pseudomonas, and was scheduled to undergo repeat sinus surgery with Dr. Jeronimo on 01/02. Patient then developed flu like sx's last week after being exposed to a coworker who had influenza. Patient was not officially tested herself, but started on tamiflu last week by PCP. Patient reported having fatigue, fevers, HAs, myalgias, cough, congestion, SOB. She states symptoms have continued to worsen. She began taking Levaquin on Saturday for prophylactic coverage pre-surgery. She then developed a diffuse erythematous rash to her extremities, trunk, neck, face yesterday. She has taken Levaquin before without developing a reaction. No other known allergens. Started on steroids today by head of commission department and referred here for further evaluation. Rash is pruritic. GENERAL: Ill and fatigued-appearing, well-nourished, and in no acute distress. HEAD: Normocephalic, atraumatic. CHEST: Tachypneic. Shallow breathing. Decreased lung sounds in left lower lung field. No respiratory distress. HEART: Tachycardic with regular rhythm.? SKIN: Diffuse scattered rash to entire body, trunk, abdomen, neck, face, extremities. Rash is erythematous with scattered excoriated lesions vs petechia, also with scattered urticaria. NEURO: ?Alert and oriented x3. Patient screened in triage and initial orders placed.? ?Additional care and disposition to be based upon?diagnostic testing and treatment. <Emely Clark PA-C - Last Filed: 01/06/24 15:50> Related Data Home medications: Home Medications Medication Instructions Recorded Confirmed escitalopram oxalate 20 mg tablet 20 mg PO DAILY 11/22/22 12/30/23 (Lexapro) <Emely Clark PA-C - Last Filed: 01/06/24 15:50> Allergies/adverse reactions: Allergies Allergy/AdvReac Type Severity Reaction Status Date / Time No Known Allergies Allergy Verified 01/06/24 15:46 <Emely Clark PA-C - Last Filed: 01/06/24 15:50> Review of Systems Review of Systems: All systems reviewed & are unremarkable except as noted in HPI and below <Marquise Hart MD - Last Filed: 01/07/24 11:51> Constitutional: Constitutional: Reports chills, Reports fatigue and Reports fever(s) <Marquise Hart MD - Last Filed: 01/07/24 11:51> ENT: Reports nasal congestion and Denies throat swelling <Marquise Hart MD - Last Filed: 01/07/24 11:51> Cardiovascular: Cardiovascular: Reports chest pain, Denies rapid heart rate and Denies radiating jaw, neck or arm pain <Marquise Hart MD - Last Filed: 01/07/24 11:51> Respiratory: Respiratory: Reports cough, Reports pain on inspiration, Reports pain with cough and Reports dyspnea <Marquise Hart MD - Last Filed: 01/07/24 11:51> Gastrointestinal: Gastrointestinal: Reports no additional gastrointestinal complaints <Marquise Hart MD - Last Filed: 01/07/24 11:51> Genitourinary: Genitourinary: Reports no additional female genitourinary complaints <Marquise Hart MD - Last Filed: 01/07/24 11:51> [facility] Past Medical History Medical History: Medical History Allergies Anxiety Asthma Hypertension URI (upper respiratory infection) Weight loss counseling, encounter for Wheezing <Emely Clark PA-C - Last Filed: 01/06/24 15:50> Surgical History Surgical History: Surgical History History of delivery <Emely Clark PA-C - Last Filed:
[2024-01-06 15:28] LABS: Hematocrit 38.9 % (37.0-47.0); Hemoglobin 12.8 g/dL (12.0-15.0); Mean Corpuscular HGB Conc 32.9 g/dl (32-36); Mean Corpuscular Hemoglobin 28.9 pg (26-34); Mean Corpuscular Volume 87.8 fl (80-100); Mean Platelet Volume 10.3 fl (7.4-10.4); Platelet Count Result 248 k/mm3 (150-375); Red Blood Count 4.43 M/mm3 (4.2-5.4); Red Cell Distribution Width 14.2 % (11.5-14.5)
[2024-01-06 15:38] LABS: Lactic Acid Reflex 1.3 mmol/L (0.7-2.0)
[2024-01-06 15:42] LABS: INR 1.2; Partial Thromboplastin Time 27.6 SECONDS (22.3-36.8); Prothrombin Time 15.4 Seconds (11.1-14.7)
[2024-01-06] MEDS: SODIUM CHLORIDE 0.9% IV 1,000 ML 999 ML IV CONT (15:42)
[2024-01-06] MEDS: diphenhydrAMINE HCl INJ 50 MG/ML VIAL 25 MG IV PUSH (15:43)
[2024-01-06 15:44] LABS: Alanine Aminotransferase 19 U/L (6-35); Alkaline Phosphatase 375 U/L (38-126); Anion Gap 14 mmol/L (8-16); Aspartate Amino Transferase 27 U/L (14-36); Bilirubin,Total 1.3 mg/dL (0.2-1.3); Blood Urea Nitrogen 45 mg/dL (7-17); Calcium 9.3 mg/dL (8.4-10.2); Carbon Dioxide 18 mmol/L (22-30); Chloride 96 mmol/L (98-107); Creatine Kinase 49 U/L (30-135); Estimated CRCL calculation 36 ml/min; Estimated Glomerular Filt Rate 33; Glucose 113 mg/dL (65-110); Magnesium 3.1 mg/dL (1.6-2.3); Potassium 3.5 mmol/L (3.4-5.0); Sodium 128 mmol/L (137-145)
[2024-01-06 15:47] LABS: Troponin I < 0.012 ng/mL (0.000-0.034)
[2024-01-06 15:48] LABS: Band Neutrophils Percent 5 % (0-6); Lymphocytes Absolute Manual 1.32 K/mm3 (1.1-4.5); Monocytes Absolute Manual 0.66 K/mm3 (0.1-0.90); Monocytes Percent Manual 3 % (3-9); Neutrophils Absolute Manual 20.02 K/mm3 (1.7-7.2); Neutrophils Percent Manual 86 % (46-73); Platelet Estimate Adequate (Adequate); Schistocytes None Seen (NORMAL); Total Cells Counted 100
[2024-01-06 16:02] LABS: Appearance Urine Cloudy (Clear); Bacteria Urine 1+ /hpf; Bilirubin Urine Negative (Negative); Blood Urine Negative (Negative); Color Urine Dark Yellow (Yellow); Glucose Urine UA Negative (Negative); Ketones Urine 1+ mg/dL (Negative); Leukocyte Esterase Ur Trace LEU/UL (Negative); Need Manual Microscopic Reviewed; Nitrate Urine Negative (Negative); Non Pathogenic Casts >20; Protein Urine 1+ mg/dL (Negative); RBC Urine 0-2 /hpf (0-2); Specific Grav Ur 1.019 (1.001-1.035); Squamous Epithelial Cell Urine Many /hpf (Few); pH Urine 5.5 (5.0-9.0)
[2024-01-06 16:05] LABS: Add Urine Microscopic? YES
[2024-01-06 16:06] LABS: Monoscreen Negative (Negative); Negative Monotest Control Negative (Negative); Positive Monotest Control Positive (Positive)
[2024-01-06 16:07] LABS: Strep Group A RT-PCR NOT DETECTED (Negative)
[2024-01-06] MEDS: MORPHINE SULFATE (*CRX) 4 MG/ML INJ IV PUSH ×2 (16:11→21:18)
[2024-01-06 16:14] LABS: Influenza A QL RT-PCR Negative (Negative); Influenza B QL RT-PCR Negative (Negative); SARS-CoV-2 RNA PCR Negative (Negative)
[2024-01-06 16:16] LABS: CRP > 45.0 mg/dL (<1.0)
[2024-01-06 16:23] LABS: Procalcitonin 11.8 ng/mL
[2024-01-06 16:39] LABS: Albumin Level 2.7 g/dL (3.5-5.1); Glucose 107 mg/dL (65-110); Lactate Dehydrogenase 221 U/L (120-246)
[2024-01-06 17:06] LABS: pH Pleural Fluid < 7.000 (7.210-7.500)
[2024-01-06] MEDS: ONDANSETRON INJ 4 MG/2 ML VIAL IV PUSH (17:35)
[2024-01-06 17:49] LABS: Appearance Pleural Fluid Cloudy (Clear); Pleural fluid source Pleural fluid
[2024-01-06 17:50] LABS: Color Pleural Fluid Yellow (Colorless)
[2024-01-06 17:51] LABS: Lymphocytes Pleural Fluid 27 %; Monocytes Pleural Fluid 70 %; Neutrophils Pleural Fluid 3 % (0-25)
[2024-01-06] MEDS: AZITHROMYCIN 500 MG/NS 250 ML 500 MG/250 ML BAG 250 MG IVPB (18:13)
[2024-01-06] MEDS: BENZOCAINE/TETRACAINE SPRAY (*SP) 56 ML AEROSOL 1 SPRAY MUCOUS MEM (21:19)
[2024-01-06] MEDS: BENZONATATE 100 MG CAPSULE PO (22:23)
--- NOTE | 2024-01-06 22:40 | PC.NURSE ---
pt received a bed at [facility] Room 401. Accepting physician is Dr. Wood.
[2024-01-08 21:38] LABS: Glucose Pleural Fluid <10 mg/dL; LDH Pleural Fluid 13166 U/L; Total Protein Pleural Fluid 3.9 g/dL
[2024-01-10 12:25] LABS: Albumin Pleural Fluid 1.9 g/dL
== END 2024-01-07 00:10 | disposition short-term general hospital (02) ==
PROVIDERS: Physician Assistant; Emergency Provider Emergency Medicine; PCP Family Medicine
DX: J18.9 Pneumonia, unspecified organism (principal); J86.9 Pyothorax without fistula; N17.9 Acute kidney failure, unspecified; Z20.822 Contact with and (suspected) exposure to COVID-19; I10 Essential (primary) hypertension; J45.909 Unspecified asthma, uncomplicated; F41.9 Anxiety disorder, unspecified; Z87.891 Personal history of nicotine dependence; R00.0 Tachycardia, unspecified
CPT/HCPCS: 32555; 36415; 71046; 71250; 80053; 81001; 81025; 82040; 82042; 82550; 82945; 82947; 83605; 83615; 83735; 83986; 84145; 84155; 84157; 84484; 85025; 85610; 85730; 86140; 86308; 87040; 87070; 87075; 87086; 87205; 87636; 87651; 88108; 88184; 88305; 89051; 93005; 96361; 96365; 96367; 96375; 96376; 99285; A9270; J0456; J0696; J1200; J2270; J2405; J7030

== ENCOUNTER 2024-02-18 02:20 | Day surgery (SDC) | payer OTHER, SELFPAY ==
[2023-12-24 08:40] VITALS: BMI 23.3
--- NOTE | 2023-12-24 08:44 | PC.NURSE ---
Report to the Outpatient Waiting Room, entrance under the green pavilion located off [facility], at time 0600 on date 01/02/24. Planned Procedure Time: 0730. Time changes happen often and if your time is changed the preop area will call you the afternoon before. - You and your visitor will be asked to self-screen and do not enter if you have any COVID symptoms. - A mask is optional within the hospital at this time. Patients may have clear liquids (water, carbonated beverages, clear teas, apple juice) until 3 hours prior to surgery with a maximum of 20 ounces. - No food from midnight until time of surgery Take the following medications with a SIP of water the morning of surgery: INHALERS, LEXAPRO, PREDNISONE DO NOT STOP ANY OF YOUR OTHER PRESCRIPTION MEDICATIONS PRIOR TO SURGERY ?EXCEPT THE FOLLOWING Medications to discontinue per physician: N/A Date to take last dose: N/A Please no make-up, nail cypriot, hairspray, perfume, deodorant, or body powder the day of surgery. No jewelry (including any body piercings) or valuables the day of surgery, leave them at home. Please take a shower or bath the night before, or the morning of, surgery with an antibacterial soap. Wear comfortable, loose fitting clothing. - Jewelry must be removed prior to entering the operating room. Rings and piercings that are not removed may be cut off. - The hospital will not accept responsibility for valuables. - Please leave all valuables, including medications, at home the day of surgery. If you are going home after surgery, a licensed patient transportation driver must drive you home. - NO public transportation without another adult if you receive anesthesia. - We recommend that an adult stay with you for 24 hours following discharge. - We also recommend that you do not drive, make important decision, drink alcoholic beverages, or take any drugs that were not prescribed by your health care provider for at least 24 hours after your discharge time. Follow any additional instructions given to you from your surgeon. If you or anyone in your household have experienced Covid symptoms in the past week, please notify your surgeon or the nurse liaison at the phone number below for possible testing. Telephone instructions given to PT - LURDES VAZQUEZ and asked if any additional questions and then verbalized understanding. Patient advised to call surgeon office or pre surgery nurse liaison [phone] if any additional questions.
[2024-02-10 15:17] VITALS: BMI 21.6
--- NOTE | 2024-02-10 15:22 | SUR.PREOP ---
Report to the Outpatient Waiting Room, entrance under the green pavilion located off [facility], at time 0930 on date _02/18/24_. Planned Procedure Time: __1130__. Time changes happen often and if your time is changed the preop area will call you the afternoon before. - You and your visitor will be asked to self-screen and do not enter if you have any COVID symptoms. - A mask is optional within the hospital at this time. Patients may have clear liquids (water, carbonated beverages, clear teas, apple juice) until 3 hours prior to surgery with a maximum of 20 ounces. - No food from midnight until time of surgery - Infants may have breast milk until 4 hours before surgery, infant formula 6 hours prior to surgery. - Children will be allowed to drink immediately following surgery. If applicable, please bring a bottle or sippy cup to assist with drinking. Juice, water, soda, and popsicles are readily available. For infants on formula, please bring formula the day of surgery. Pacifiers are allowed. Take the following medications with a SIP of water the morning of surgery: n/a___ DO NOT STOP ANY OF YOUR OTHER PRESCRIPTION MEDICATIONS PRIOR TO SURGERY ?EXCEPT THE FOLLOWING Medications to discontinue per physician n/a Date to take last dose Please no make-up, nail macedonian, hairspray, perfume, deodorant, or body powder the day of surgery. No jewelry (including any body piercings) or valuables the day of surgery, leave them at home. Please take a shower or bath the night before, or the morning of, surgery with an antibacterial soap. Wear comfortable, loose fitting clothing. Children are encouraged to wear pajamas. - Jewelry must be removed prior to entering the operating room. Rings and piercings that are not removed may be cut off. - The hospital will not accept responsibility for valuables. - Please leave all valuables, including medications, at home the day of surgery. If you are going home after surgery, a licensed tractor trailer truck driver must drive you home. - NO public transportation without another adult if you receive anesthesia. - We recommend that an adult stay with you for 24 hours following discharge. - We also recommend that you do not drive, make important decision, drink alcoholic beverages, or take any drugs that were not prescribed by your health care provider for at least 24 hours after your discharge time. For Pediatric surgeries, we recommend two adults accompany the child home. Follow any additional instructions given to you from your surgeon. If you or anyone in your household have experienced Covid symptoms in the past week, please notify your surgeon or the nurse liaison at the phone number below for possible testing. Telephone instructions given to __patient and asked if any additional questions and then verbalized understanding. Patient advised to call surgeon office or pre surgery nurse liaison [phone] if any additional questions.
--- NOTE | 2024-02-17 15:58 | PM.IMHP ---
H&P: HPI History of Present Illness Date/Time: 02/17/24 15:58 Chief Complaint: Chronic sinusitis Narrative: planned procedure Review of Systems Review of Systems: All systems reviewed & are unremarkable except as noted in HPI and below PMFSH Past Medical History Medical History Allergies Anxiety Asthma Hypertension URI (upper respiratory infection) Weight loss counseling, encounter for Wheezing Surgical History Surgical History History of delivery X2 Family History Family History Mother Hypertension Depression COPD (chronic obstructive pulmonary disease) Grandparent Hypertension Cerebrovascular accident Depression Grandparent Hypertension Cerebrovascular accident Social History Social History Smoking packs per day: 1 Smoking cigarettes per day: 20.0 Years smoked: 10 Smoking pack-years: 10.00 Smoking status: Never smoker Tobacco type: cigarettes and e-cigarettes/vaping Smoking end date: 11/25/21 Alcohol intake: never Substance use: never Substance use type: does not use Lack of Transportation: No Lack of Food: Never True Current Housing: I Have Housing Concerned About Future Housing: No Difficulty Paying Gas/Electric Bills: No Difficulty Paying for Meds: No Currently Unemployed: No Education: High School Diploma/GED Difficulty w/ Childcare or Family Care: No Living arrangements: with family Occupation/Education: occupation 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 [employer] concerns: No Agree to blood products: Yes Meds Home Medications and Allergies Home Medications Medication Instructions Recorded Confirmed Type albuterol sulfate 90 mcg/actuation 2 puff inhalation PRN PRN sob 02/10/24 02/10/24 History aerosol inhaler prednisone 20 mg tablet 20 mg PO .daily 6 days #6 tabs 02/11/24 02/11/24 Rx Allergies Allergy/AdvReac Type Severity Reaction Status Date / Time levofloxacin [From Levaquin] Allergy Mild Rash Verified 02/10/24 09:30 oseltamivir [From Tamiflu] Allergy Mild Rash Verified 02/10/24 09:30 Exam Narrative: chronic appearing sinuses Assessment and Plan Assessment and plan (1) Chronic sinusitis: Code(s): Dimitry32.9 - Chronic sinusitis, unspecified Status: Acute Assessment and Plan: plan OR bilateral image guided endoscopic revision maxillary antrostomy total ethmoidectomy sphenoidotomy frontal sinusotomy. Of note the patient had remarkable exam with only frontal sinus disease at the last office visit. Will slowly go through her CT intraoperatively and open up any diseased in close cells and redo the frontals. Risks discussed bleeding infection damage to surrounding structures need further procedures CSF leak brain brain damage change in vision total blindness need for further procedures. Damage to any structure of the clavicles by myself damage to any structure during the induction and maintenance of anesthesia. Patient voiced understanding and agreed. Mitchell tissue sample for sarcoid and vasculitis studies.
[2024-02-18] VITALS (9 sets, daily range): BP systolic 105–114; BP diastolic 62–80; PULSE 67–90; RESP 10–16; TEMP 36.2–37.2; O2SAT 94–100; BMI 22.2
--- NOTE | 2024-02-18 07:24 | WPDHPUPDATE1 ---
History and Physical Update Update Date/Time: 02/18/24 07:24 History and Physical has been reviewed, including an updated exam of the patient. There are NO changes in the patient's condition. Risks, benefits, and alternatives have been discussed and questions answered. Patient agrees to proceed with procedure.
[2024-02-18] MEDS: ACETAMINOPHEN 500 MG TABLET 1000 MG PO (10:25)
[2024-02-18] MEDS: LACTATED RINGERS 1,000 ML 30 ML IV CONT ×2 (10:30→13:15)
--- NOTE | 2024-02-18 10:33 | WPDANESEPPF ---
Anes - Initial Pre Proc Eval Procedure: Operation Date: 02/18/24 11:30 Proposed Procedures p Revision Image Guided Bilateral Maxillary Antrostomy, Bilateral Total Ethmoidectomy, Bilateral Frontal Sinusotomy, Bilateral Sphenoidotomy - Minh Jeronimo MD Date/Time: 02/18/24 10:33 Surgeon: Minh Jeronimo MD Pre Op Diagnosis: chronic sinusitis Patient Data Age: 38 Gender: F Height: 1.65 m Weight: 60.6 kg Allergies Allergy/AdvReac Type Severity Reaction Status Date / Time levofloxacin [From Levaquin] Allergy Mild Rash Verified 02/18/24 10:14 oseltamivir [From Tamiflu] Allergy Mild Rash Verified 02/18/24 10:14 Home Medications Medication Instructions Recorded Confirmed Type albuterol sulfate 90 mcg/actuation 2 puff inhalation PRN PRN sob 02/10/24 02/10/24 History aerosol inhaler prednisone 20 mg tablet 20 mg PO .daily 6 days #6 tabs 02/11/24 02/11/24 Rx budesonide 160 mcg-glycopyr 9 2 inh inhalation BID 02/18/24 02/18/24 History mcg-formot 4.8 mcg/actuation HFA inhaler (Breztri Aerosphere) ceftriaxone 2 gram intravenous 2 g IV DAILY 02/18/24 02/18/24 History solution Patient hx anesthesia problems: none Family hx anesthesia problems: none Results Review: All pre-operative results and documents have been reviewed as part of the pre-operative evaluation. PMFSH Past Medical History Medical History Allergies Anxiety Asthma Hypertension URI (upper respiratory infection) Weight loss counseling, encounter for Wheezing Surgical History Surgical History History of delivery X2 Family History Family History Mother Hypertension Depression COPD (chronic obstructive pulmonary disease) Grandparent Hypertension Cerebrovascular accident Depression Grandparent Hypertension Cerebrovascular accident Social History Social History Smoking packs per day: 1 Smoking cigarettes per day: 20.0 Years smoked: 10 Smoking pack-years: 10.00 Smoking status: Never smoker Tobacco type: cigarettes and e-cigarettes/vaping Smoking end date: 11/25/21 Alcohol intake: never Substance use: never Substance use type: does not use Lack of Transportation: No Lack of Food: Never True Current Housing: I Have Housing Concerned About Future Housing: No Difficulty Paying Gas/Electric Bills: No Difficulty Paying for Meds: No Currently Unemployed: No Education: High School Diploma/GED Difficulty w/ Childcare or Family Care: No Living arrangements: with family Occupation/Education: occupation Additional occupation/education comments: [place] for [employer] concerns: No Agree to blood products: Yes Anes - Eval Final PreProcedure Day of Procedure 02/18/24 10:33 Patient weight: normal Heart: regular rate and rhythm Lungs: decreased breath sounds Airway: Mallampati scale class II Neurological: alert and oriented Last oral intake: >/= 8 hours ASA classification: III Emergent: no Anesthetic plan: proceed Anesthesia type and monitoring: general ETT and standard monitoring Results Review: All pre-operative results and documents have been reviewed as part of the pre-operative evaluation. Informed Consent: The patient's anesthetic plan and its attendant risks and benefits were discussed with the patient/family/POA. Questions were solicited and answers provided to the satisfaction of the patient/family/POA.
[2024-02-18] MEDS: OXYMETAZOLINE HCL 0.05% NAS 15 ML BTL (*BKC) 1 SPRAY NASAL (11:22)
[2024-02-18] MEDS: TOBRAMYCIN SULFATE 80 MG/2 ML VIAL 400 MG IRRIGATION (11:24)
--- NOTE | 2024-02-18 13:25 | W.PM.PROC2 ---
Procedure Note - Detailed Date of Procedure 02/18/24 Pre-op Diagnosis chronic sinusitis Post-op Diagnosis Same Procedure Performed Bilateral image guided endoscopic revision maxillary antrostomies total ethmoidectomies frontal sinusotomies sphenoidotomies. Surgeon Minh Jeronimo MD Anesthesia General Indications See above Findings for the most part the sinuses look good in the max is ethmoids and sphenoids the name surgical os is were simply opened avoiding arteries the ethmoid partitions were taken to the skull base there were several loculated ethmoid cells bilaterally that were open had thick mucus the frontals with really diseased portion that required significant time to opened carefully. Thick thick mucus in both frontals no purulence. Propel stents placed. Will blood loss Description of Procedure patient identified consent verified preop. Patient brought to the operating room. Time-out performed. General anesthesia induced endotracheal tube secured airway. Patient prepped draped position procedure confirmed. Second time-out performed. Image guidance initiated and confirmed. Afrin-soaked pledgets placed for 5 minutes then removed. 0 degree endoscope utilized maxillary antrostomies widened with backbiter straight through cut microdebrider. Ethmoid partitions were taken to the orbit and skull base with Kerrison and microdebrider. Great care was taken to not injure the anterior ethmoidal arteries bilaterally. Sphenoidotomies were opened more widely with Kerrison straight through cut and sphenoid punch. Great care was taken to not injure the posterior septal artery bilaterally. Frontal sinus is challenging especially on the right were performed frontal sinusotomies performed with the 70 degree scope image guidance image guided frontal seeker image guided suction Hosemann and draft instruments as well as Cobra. The right is very narrow and had to eat the floor of the frontal sinus going anterior and medially to avoid the cribriform as well a taking great care to avoid the cribriform. The all the wounds were then copiously irrigated with sterile normal saline infused with 400 milligrams/liter of tobramycin. At the end of the procedure propel stents were placed the bilateral frontals to insure the outflow tracts stay patent. I elected not to pack in knowing that this would call cause potentially more postoperative bleeding that the patient can irrigate and really keep budesonide antibiotics flowing in her sinuses given the amount of disease she previously had. Patient tolerated the procedure very well there were no complications total blood loss about 25 cc. I performed all dictated portions of procedure. Care the patient given Anesthesiology. Patient taken to PACU. A large portion of tissue was sent for sarcoid and vasculitis studies as well. Estimated Blood Loss 25 Drains No Packing No Pathology Yes Complications No immediate complications Condition Stable Disposition PACU [facility] Billing Surgery - Charge Forward: Surgery Billing
[2024-02-18] MEDS: oxyCODONE (*CRX) 5 MG/5 ML ORAL SOLN IR PO (13:56)
== END 2024-02-18 14:35 | disposition home or self-care (01) ==
PROVIDERS: Visit Provider Otolaryngology
PROC: (CPT 31256; principal; 2024-02-18 11:30)
DX: J32.9 Chronic sinusitis, unspecified (principal); J33.8 Other polyp of sinus; I10 Essential (primary) hypertension; F41.9 Anxiety disorder, unspecified; J45.909 Unspecified asthma, uncomplicated; Z79.51 Long term (current) use of inhaled steroids; Z79.52 Long term (current) use of systemic steroids; Z87.891 Personal history of nicotine dependence; Z82.49 Family history of ischemic heart disease and other diseases of the circulatory system
CPT/HCPCS: 31256; 31257; 31276; 61782; 88305; 88311; A9270; C2625; J0690; J1170; J1720; J2250; J2371; J2405; J2704; J3260; J7050; J7120

== ENCOUNTER 2024-03-15 12:20 | Outpatient (CLI) | payer OTHER, SELFPAY ==
--- NOTE | ~2024-03-15 | CT_ITS ---
EXAMINATION:CT diagnostic chest wo con DATE: 03/15/2024 12:54 INDICATION: Localized enlarged lymph nodes. TECHNIQUE: Computed tomography (CT) of the chest was performed without intravenous contrast. Automate d exposure control and iterative reconstruction technique were employed. The dose-length product (DLP ) was 144.85 mGy-cm. COMPARISON: Chest CT 01/06/2024 FINDINGS: There is a trace left pleural effusion with left-sided pleural thickening. There are periph eral airspace opacities in left lower lobe and lingula with volume loss, consistent with rounded atel ectasis. There is mild atelectasis in right middle lobe. There is a cluster of tree-in-bud opacities in right lower lobe, likely inflammation or infection. The heart size is normal. No pericardial effus ion. There are no pathologically enlarged lymph nodes. There are bilateral breast implants. The bones are unremarkable. IMPRESSION: 1. No lymphadenopathy. 2. Improved trace left pleural effusion. Left-sided pleural thickening. 3. Atelectasis involving right middle lobe, lingula, and left lower lobe. 4. Cluster of tree-in-bud opacities in right lower lobe, likely inflammation or infection. Reviewed, dictated and finalized at location E.
== END 2024-03-15 12:21 | disposition home or self-care (01) ==
PROVIDERS: Visit Provider Internal Medicine Pulmonary Disease
DX: R59.0 Localized enlarged lymph nodes (principal); J86.9 Pyothorax without fistula; R91.8 Other nonspecific abnormal finding of lung field
CPT/HCPCS: 71250

== ENCOUNTER → 2024-04-01 16:07 | Outpatient (REF) | payer OTHER, SELFPAY | LOC: ANHGOSHLAB 16:07 | PROVIDERS: Visit Provider Otolaryngology | DX: J33.9 Nasal polyp, unspecified (principal); J32.9 Chronic sinusitis, unspecified | CPT/HCPCS: 87070; 87075; 87102; 87107; 87181; 87205; 87206 ==

== ENCOUNTER 2024-04-15 13:33 | Outpatient (NON) | payer OTHER, SELFPAY | END 2024-04-15 13:34 | disposition home or self-care (01) | LOC: ANHGOSHLAB 13:37 | PROVIDERS: Visit Provider Otolaryngology | DX: J32.9 Chronic sinusitis, unspecified (principal); J34.89 Other specified disorders of nose and nasal sinuses | CPT/HCPCS: 87070; 87075; 87205 ==

== ENCOUNTER 2025-01-30 14:18 | Emergency (ER) | payer OTHER, SELFPAY ==
--- OUTSIDE RECORDS SUMMARY | 2025-01-30 14:20 | XMS_ITS | Encounter Summary ---
Author Organization [facility] Address [address] [place] [address] Care Team Providers Care Database Consultant Name Role Phone Felicia Timmons MD Primary Care Provider [phone] Encounter Details Date Type Department Care Team (Late st Contact Info) Description 01/07/2024 Lab Requisition [facility] - Pathology Lab [address] [place] [id number] Jaden Castle MD [address] [place] [id number] Pleural condition, unspecified Social History Tobacco Use Types Packs/Day Years Used Date Smoking Tobacco: Never Assessed Overall Financial Resource Strain (CARDIA) Answe r Date Recorded How hard is it for you to pa y for the very basics like food, housing, medical care, and heating? Not hard at all 01/07/2024 [facility] - Occupational Stress Questionnaire Answer Date Recorded Do you feel stress - tense, restless, nervous, or anxious, or unable to sleep at night because your mind is troubled all the time - these days? Not at all 01/07/2024 Hunger Vital Sign Answer Date Recorded Within the past 12 months, y ou worried that your food would run out before you got the money to buy more. Never true 01/07/20 24 Within the past 12 months, t he food you bought just didn't last and you didn't have money to get more. Never true 01/07/2024 PRAPARE - Transportation Answer Date Re corded In the past 12 months, has l ack of transportation kept you from medical appointments or from getting medications? No 12/26 In the past 12 months, has l ack of transportation kept you from meetings, work, or from getting things needed for daily living? No 01/07/2024 Housing Stability Vital Sign Answer Dameon e Recorded In the last 12 months, was t here a time when you were not able to pay the mortgage or rent on time? No 01/07/2024 In the last 12 months, how many places have you lived? 1 01/07/2024 In the last 12 months, was t here a time when you did not have a steady place to sleep or slept in a skilled nursing (including now)? No 01/07/2024 Sex and Gender Information Value Date Recorded Sex Assigned at Not on file Gender Identity Not on file Sexual Orientation Not on file documented as of this encounter Functional Status Functional Status Response Date of Assess ment Is person deaf or have serious hearing difficult y? No 01/07/2024 Is person blind or have serious difficulty seein g? No 01/07/2024 Does person have serious dif ficulty walking/climbing stairs? No 01/07/2024 Does person have difficulty dressing/bathing? No 01/07/2024 Does person have difficulty doing errands alone? No 01/07/2024 Cognitive Status Response Date of Assessm ent Does person have difficulty concentrating/remembering/making decisions? No 01/07/2024 documented as of this encounter Plan of Treatment Not on file documented as of this encounter Procedures Procedure Name Priority Date/Time Associated Diagnosis Comments FLOW CYTOMETRY BODY FLUID Routine 01/06/2024 5:03 PM GLOBAL SALES MANAGER Pleural condition, unspecified documented in this encounter Results * FLOW CYTOMETRY BODY FLUID (01/06/2024 5:03 PM GLOBAL SALES MANAGER) Case Report Flow Cytometry Case: [id number] Authorizing Provider: Jaden Castle Collected: 01/06/2024 05:03 PM MD Jd Ordering Location: [facility] Received: 01/07/2024 11:56 AM Pathologist: Serina Mccoy MD Specimen: Pleural Fluid, LEFT 01/07/2024 2:34 PM GLOBAL SALES MANAGER [facility] Final Diagnosis Pleural fluid, flow cytometry: - Too few white blood cells for flow cytometry 01/07/2024 2:[address] [facility] Flow Cytometry Interpretation A cytospin prepared from the flow cytometry specimen has been reviewed for quality control lead purposes. The cellularity represents exclusively macrophage-appear ing cells. 01/07/2024 2:[address] [facility] Flow Cytometry Results Too few white blood cells for flow cytometric analysis. 01/07/2024 2:34 PM [facility] Client Specimen ID # [id number] 01/07/2024 2:34 PM [facility] Reason for test Pleural condition, unspecified 01/07/2024 2:34 PM [facility] Pathologist Location at [facility] 01/07/2024 2:34 PM [facility] Disclaimer Test performed at [facility], [address] [place] [address], [facility]. *The established laboratory minimum viability is 70%. Values below the minimum may result in the failure to find an abnormal population of cells. This test was developed and its performance characteristics determined by the Flow Cytometry Laboratory. It has not been cleared by the [place] Food and Drug Administration (FDA). The FDA has determined that such clearance or approval is not necessary. This test is used for clinical purposes. It should not be regarded as investigational or for research. This laboratory is regulated under the Clinical Laboratory Improvement Amendments of 1998 (CLIA) as a qualified to perform high complexity clinical testing. 01/07/2024 2:[address] [facility] Embedded Images 2:[address] [facility] Fluid PLEURAL FLUID / Unknown 01/06/2024 5:03 PM GLOBAL SALES MANAGER 01/07/2024 11:56 AM GLOBAL SALES MANAGER Jaden Castle MD LAB - PATHO LOGY/CYTOLOGY ORDERABLES [facility] [address] [place] [address]. [address] [phone] documented in this encounter Visit Diagnoses Diagnosis Pleural condition, unspecified documented in this encounter Additional Health Concerns Infection Onset Date Last Indicated Resolved Time COVID-19 Under Investigation 01/07/2024 01/07/2024 01/07/2024 12:58 PM GLOBAL SALES MANAGER COVID-19 Under Investigation 01/08/2024 01/08/2024 01/08/2024 5:09 PM GLOBAL SALES MANAGER documented as of this encounter Care Teams Database Consultant Relationship Specialty Start Date End Date Felicia Timmons MD [address] [place] [address] PCP - General Family Medicine 07/07/24 documented as of this encounter
--- OUTSIDE RECORDS SUMMARY | 2025-01-30 14:20 | XMS_ITS | Clinical Summary ---
Author Organization [facility] Address [address] [place] [id number] Care Team Providers Care Roadability Machine Operator Name Role Phone Unavailable Primary Care Provider Unavailabl e Social History Tobacco Use Types Packs/Day Years Used Date Smoking Tobacco: Never Assessed Comments Unknown Sex and Gender Information Value Date Recorded Sex Assigned at Not on file Legal Sex Female 8:34 PM CDT Gender Identity Not on file Sexual Orientation Not on file Plan of Treatment Health Maintenance Due Date Last Done Comments Cervical Cancer Screening Pa p Smear (Age 30 to 64) Every 3 Years 1984 Annual Physical 1987 Hepatitis C 2002 DTaP, Tdap and Td Vaccines ( 1 - Tdap) 2003 Hepatitis B Vaccines (1 of 3 - 19+ 3-dose series) 2003 Cervical Cancer Screening Pa p with HPV Testing (Age 30 to 64) Every 5 Years 2014 Cervical Cancer Screening with HPV 2014 COVID-19 Vaccine (2023-2 5 season) 2024 Influenza Adult (#1) 2024 Mammogram Screening 2024 HPV Vaccines Aged Out No longer eligi ble based on patient's age to complete this topic Meningococcal B Vaccine Aged Out No l onger eligible based on patient's age to complete this topic Meningococcal Vaccine Aged Out No vee jose eligible based on patient's age to complete this topic Pneumococcal Vaccine: Pediat rics (0 to 5 Years) and At-Risk Patients (6 to 64 Years) Aged Out No longer eligible b ased on patient's age to complete this topic RSV Immunizations Under 20 Months Aged Out No longer eligible based on patient's age to complete this topic Insurance on file
--- OUTSIDE RECORDS SUMMARY | 2025-01-30 14:20 | XMS_ITS | Referral Summary ---
Author Organization [facility] Address [address] [place] [address] Care Team Providers Care Hospice Volunteer Name Role Phone Felicia Timmons MD Primary Care Provider [phone] Source Comments [facility],non-owned Affiliates and Associated Physician Practices is amultiple site organization consisting of ambulatory clinics and hospital sitesin [place], [place], [place] and [place]. This disclosure is being madepursuant to the Care Everywhere program and may not contain all information available regarding this patient. Last updated 18.[facility] Allergies Active Allergy Reactions Criticality Noted Date Comments Levofloxacin Rash Medium 01/07/2024 Per the pt Tamiflu Rash Medium 01/09/2024 Medications * Be aware that medications may not be up to date on this document. Alwaysverify current medications with the patient. Medication Sig Dispensed Refills Start Date End Date Status albuterol HFA (Proventil; Ventolin; Proair) 108 (90 Base) MCG/ACT inhalerIndications :Asthma Inhale 2 (two) puffs by mouth every 4 hours Reasons: Asthma Active escitalopram (Lexapro) 20 MG tabletIndications: Generalized Anxiety Disorder Take 1 (one) tablet by mouth once daily Reasons: Generalized Anxiety Disorder Active albuterol-ipratrop ium (Duo-Neb) 0.5-2.5 (3) MG/3ML nebulizer solution Inhale 3 mL by mouth every 6 hours 01/12/2024 Active Additional Information Patient taking differently:3 mL InhalationPRN, Reported on 05/05/2024 Breradhatri Aerosphere 160-9-4.8 MCG/ACT inhaler Inhale 1 (one) puff by mouth 2 times daily 05/04/2024 Active amoxicillin (Amoxil) 875 MG tablet Take 1 (one) tablet by mouth every 12 hours 09/14/2024 Active Fasenra injection Inject 30 (thirty) mg subcutaneously once 09/16/2024 Active clobetasol (Temovate) 0.05 % cream Apply to affected area 2 times daily 09/14/2024 Active phentermine (Ionamine) 15 MG capsule Take 1 (one) capsule by mouth once daily 09/16/2024 Active promethazine-DM syrup Take 1.25 mL by mouth every 6 hours as needed 09/14/2024 Active Tobramycin Compound 20 mg capsules. Mix contents of 1 capsule in 240 ml saline and irrigate half in each nostril twice daily x 30 days 60 g 09/29/2024 Active Active Problems Problem Noted Date Diagnosed Date Sinusitis, unspecified chronicity, unspecified l ocation 01/12/2024 Empyema 01/12/2024 Pleural effusion 01/06/2024 ISHAAN (acute kidney injury) 01/06/2024 Multifocal pneumonia 01/06/2024 Immunizations Name Administration Dates Next Due FLU VACCINE TRI IIV3 SPLIT IM (FLUVIRIN) 014,09/29/2013 INFLUENZA VACCINE, CELL CULT URE, QUADR. (FLUCELVAX QUADRIVALENT; 6MO+) (CCIIV4) 08/07/2022 INFLUENZA VACCINE, QUADR. (F LUZONE; FLULAVAL; FLUARIX; AFLURIA QUADRIVALENT; 6MO+), 0.5 ML (IIV4) 09/16/2021,09/23/2018 INFLUENZA VACCINE, TRIV. (FL UZONE; FLULAVAL; FLUARIX; AFLURIA TRIVALENT; 6MO+), 0.5 ML (IIV3) 10/06/2017,12/10/2012 TDAP, HISTORIC VACCINE 10/28/2021 Social History Tobacco Use Types Packs/Day Years Used Date Smoking Tobacco: Former Cigarettes 1 10 2 011 - 2020 Smokeless Tobacco: Never Tobacco Cessation:Counseling Given: Not Answered Alcohol Use Standard Drinks/Week Comments Never 0 (1 standard drink = 0.6 oz pur e alcohol) AUDIT-C Answer Date Recorded Q1: How often do you have a drink containing alc ohol? Monthly or less 01/12/2024 Q2: How many drinks containi ng alcohol do you have on a typical day when you are drinking? 1 or 2 01/12/2024 Q3: How often do you have si x or more drinks on one occasion? Never 01/12/2024 Overall Financial Resource Strain (CARDIA) Answe r Date Recorded How hard is it for you to pa y for the very basics like food, housing, medical care, and heating? Not very hard 01/12/2024 PHQ-2 Answer Date Recorded Patient Health Questionnaire-2 Score 0 01/29/2024 [facility] Occupat ional [facility] - Occupational Stress Questionnaire Answer Date Recorded Do you feel stress - tense, restless, nervous, or anxious, or unable to sleep at night because your mind is troubled all the time - these days? Not at all 01/12/2024 Hunger Vital Sign Answer Date Recorded Within the past 12 months, y ou worried that your food would run out before you got the money to buy more. Never true 01/12/20 24 Within the past 12 months, t he food you bought just didn't last and you didn't have money to get more. Never true 01/12/2024 PRAPARE - Transportation Answer Date Re corded In the past 12 months, has l ack of transportation kept you from medical appointments or from getting medications? No 12/26 In the past 12 months, has l ack of transportation kept you from meetings, work, or from getting things needed for daily living? No 01/12/2024 Housing Stability Vital Sign Answer Dameon e Recorded In the last 12 months, was t here a time when you were not able to pay the mortgage or rent on time? No 01/12/2024 In the last 12 months, how many places have you lived? 1 01/12/2024 In the last 12 months, was t here a time when you did not have a steady place to sleep or slept in a snf (including now)? No 01/12/2024 Sex and Gender Information Value Date Recorded Sex Assigned at Not on file Gender Identity Not on file Sexual Orientation Not on file Last Filed Vital Signs Vital Sign Reading Time Taken Comments Blood Pressure 124/77 09/22/2024 10:38 AM CDT Pulse 73 09/22/2024 10:38 AM CDT Temperature 36.6 C (97.9 F) 01/29/2024 9:50 AM TALENT ACQUISITION PROJECT MANAGER Respiratory Rate 18 01/31/2024 10:29 AM TALENT ACQUISITION PROJECT MANAGER Oxygen Saturation 97% 01/31/2024 10:29 AM TALENT ACQUISITION PROJECT MANAGER Inhaled Oxygen Concentration - - Weight 68 kg (150 lb) 09/22/2024 10:38 AM CDT Height 165.1 cm (5' 5 ) 09/22/2024 10:38 AM CDT Body Mass Index 24.96 09/22/2024 10:38 AM CDT Functional Status Functional Status Response Date of Assess ment Is person deaf or have serious hearing difficult y? No 01/12/2024 Is person blind or have serious difficulty seein g? No 01/12/2024 Does person have serious dif ficulty walking/climbing stairs? No 01/12/2024 Does person have difficulty dressing/bathing? No 01/12/2024 Does person have difficulty doing errands alone? No 01/12/2024 Cognitive Status Response Date of Assessm ent Does person have difficulty concentrating/remembering/making decisions? No 01/12/2024 Plan of Treatment Not on file Procedures Procedure Name Priority Date/Time Associated Diagnosis Comments HIV-1 HIV-2 ANTIBODY + HIV P24 AG PANEL Routine 01/12/2024 11:58 AM TALENT ACQUISITION PROJECT MANAGER from Last 3 Months or Most Recently Relevant to Health Maintenance Results * HIV-1 HIV-2 ANTIBODY + HIV P24 AG PANEL (01/12/2024 11:58 AM TALENT ACQUISITION PROJECT MANAGER) HIV1/2 Ab + P24 Ag Non Reactive Non Reactive 01/12/2024 12:56 PM TALENT ACQUISITION PROJECT MANAGER [facility] Blood BLOOD SPECIMEN / Unknown Lab Venipuncture / Unknown 01/12/2024 11:58 AM TALENT ACQUISITION PROJECT MANAGER 01/12/2024 12:18 PM TALENT ACQUISITION PROJECT MANAGER Narrative [facility] - 01/12/2024 12:56 PM TALENT ACQUISITION PROJECT MANAGER No Laboratory evidence of HIV infection. Yoav Sanchez MD LAB - CHEMISTRY ALFREDO Michelle Organization Address City/State/ZIP Co de Phone Number [facility] [address] [place] [address] from Last 3 Months or Most Recently Relevant to Health Maintenance Advance Directives * Full Code (Latest Code Status on File) Date Activated Date Inactivated Comments 01/12/2024 9:39 PM 01/16/2024 3:55 PM * Full Code Date Activated Date Inactivated Comments 01/07/2024 9:46 AM 01/12/2024 8:58 PM Care Teams Hospice Volunteer Relationship Specialty Start Date End Date Felicia Timmons MD [address] [place] [address] PCP - General Family Medicine 07/07/24
--- OUTSIDE RECORDS SUMMARY | 2025-01-30 14:20 | XMS_ITS | Patient Health Record ---
Author Organization [facility] Address [address] [place] [address] Care Team Providers Care Narrow Gauge Engineer Name Role Phone Xander Gaston Primary Care Provider [phone] Reason For Referral No Information Immunizations Vaccine Route Administration Date Status Comme nts COVID-19 Moderna 2nd IM Intramuscular 03/16/2021 Administered COVID-19 Moderna 1ST IM Intramuscular 02/16/2021 Administered EUA date 0. Screening reviewed and consent signed. Patient tolerated well. Plan Of Treatment No Information Insurance Providers Payer Name Payer Address Payer Phone Subscriber Number Group Number Insured Name Patient Relationship to Insured Coverage Start Date Coverage End Date [facility] [address] [place] [address] [id number] Tasia [place] Self - patient is the insured 1
--- OUTSIDE RECORDS SUMMARY | 2025-01-30 14:20 | XMS_ITS | Encounter Summary ---
Author Organization [facility] Address [address] [place] [address] Care Team Providers Care Transcript Clerk Name Role Phone Felicia Timmons MD Primary Care Provider [phone] Encounter Details Date Type Department Care Team (Late st Contact Info) Description 05/19/2021 Lab Requisition [facility] [address] [place] [id number] Titi Mendoza MD [address] [facility] [place] [address] Social History Tobacco Use Types Packs/Day Years Used Date Smoking Tobacco: Never Assessed Sex and Gender Information Value Date Recorded Sex Assigned at Not on file Gender Identity Not on file Sexual Orientation Not on file documented as of this encounter Plan of Treatment Not on file documented as of this encounter Procedures Procedure Name Priority Date/Time Associated Diagnosis Comments DERMATOPATHOLOGY Routine 05/17/2021 3:33 AM CDT documented in this encounter Results * DERMATOPATHOLOGY (05/17/2021 3:33 AM CDT) Case Report Dermatopathology Report Case: [id number] Authorizing Provider: Titi Mendoza MD Collected: 05/17/2021 03:33 AM Ordering Location: [facility] Received: 05/19/2021 05:51 AM Pathologist: Lauren Tuttle MD Specimen: Skin, rigth calf 4:26 PM CDT DERMATOPATHOLOGY LABORATORY Final Diagnosis Specimen A. SKIN, rigth calf: DERMATOFIBROMA (D23.9) PRESENT AT MARGIN 1 4:26 PM CDT DERMATOPATHOLOGY LABORATORY Clinical History DF. Check margins. Path # [id number]. 4:26 PM CDT DERMATOPATHOLOGY LABORATORY Gross Description Specimen A: Received is one formalin filled container labeled with the patient's name and designated rigth calf. The specimen consists of a punch excision measuring [id number], bisected. The margin is inked green. Jar 0. 4:26 PM CDT DERMATOPATHOLOGY LABORATORY Microscopic Description Specimen A. SKIN, rigth calf: There is epidermal hyperplasia. Within the dermis, there are fibrohistiocytic cells in haphazard array among coarse collagen bundles. This lesion is present at the margin of the specimen. 4:26 PM CDT DERMATOPATHOLOGY LABORATORY Disclaimer An external and internal positive and negative controls are appropriate for the histochemical, immunohistochemical and immunofluorescence stain(s) in this case (if any), except where stated explicitly. The performance characteristics of the stain(s) cited in this report were developed and its performance characteristic determined by the Dermatopathology Laboratory at [facility], directed by Dr. Jelly Angelo. These tests need not be, and therefore are not, approved by the [place] Food and Drug Administration. The tests are used for clinical purposes. Billing Codes Specimen Charges Stain Charges 24947 1 4:26 PM CDT DERMATOPATHOLOGY LABORATORY Embedded Images 4:26 PM CDT DERMATOPATHOLOGY LABORATORY Pathology/Cytolo gy TISSUE SPECIMEN FROM SKIN / Unknown 05/17/2021 3:33 AM CDT 05/19/2021 5:51 AM CDT Titi Mendoza MD LAB - PATHOLOGY/CYTO LOGY ORDERABLES DERMATOPATHOLOGY LABORATORY [facility] - Department of Dermatology [address], [address] [phone] documented in this encounter Visit Diagnoses Not on filedocumented in this encounter Additional Health Concerns Infection Onset Date Last Indicated Resolved Time COVID-19 Under Investigation 01/07/2024 01/07/2024 01/07/2024 12:58 PM 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
--- OUTSIDE RECORDS SUMMARY | 2025-01-30 14:20 | XMS_ITS | Patient Health Summary ---
Author Organization [facility] Address [address] [place] [place] [address] Care Team Providers Care Edger Saw Operator Name Role Phone Felicia Timmons MD Primary Care Provider [phone] Note from [facility],non-owned Affiliates and Associated Physician Practices is amultiple site organization consisting of ambulatory clinics and hospital sitesin [place], [place], [place] and [place]. This disclosure is being madepursuant to the Care Everywhere program and may not contain all information available regarding this patient. Last updated 18.[facility] Allergies * Levofloxacin(Rash) -Medium Criticality * Tamiflu(Rash) -Medium Criticality Medications * Be aware that medications may not be up to date on this document. Alwaysverify current medications with the patient. * albuterol HFA (Proventil; Ventolin; Proair) 108 (90 Base) MCG/ACT inhaler Inhale 2 (two) puffs by mouth every 4 hours Reasons: Asthma * escitalopram (Lexapro) 20 MG tablet Take 1 (one) tablet by mouth once daily Reasons: Generalized Anxiety Disorder * albuterol-ipratropium (Duo-Neb) 0.5-2.5 (3) MG/3ML nebulizer solution(Started 01/12/2024) Inhale 3 mL by mouth every 6 hours * Breztri Aerosphere 160-9-4.8 MCG/ACT inhaler(Started 05/04/2024) Inhale 1 (one) puff by mouth 2 times daily * amoxicillin (Amoxil) 875 MG tablet(Started 09/14/2024) Take 1 (one) tablet by mouth every 12 hours * Fasenra injection(Started 09/16/2024) Inject 30 (thirty) mg subcutaneously once * clobetasol (Temovate) 0.05 % cream(Started 09/14/2024) Apply to affected area 2 times daily * phentermine (Ionamine) 15 MG capsule(Started 09/16/2024) Take 1 (one) capsule by mouth once daily * promethazine-DM syrup(Started 09/14/2024) Take 1.25 mL by mouth every 6 hours as needed * Tobramycin(Started 09/29/2024) Compound 20 mg capsules. Mix contents of 1 capsule in 240 ml saline and irrigate half in each nostril twice daily x 30 days Active Problems Problem Noted Date Diagnosed Date Sinusitis, unspecified chronicity, unspecified l ocation 01/12/2024 Empyema 01/12/2024 Pleural effusion 01/06/2024 ISHANA (acute kidney injury) 01/06/2024 Multifocal pneumonia 01/06/2024 Immunizations * FLU VACCINE TRI IIV3 SPLIT IM (FLUVIRIN)(Given 09/11/2014, 09/29/2013) * INFLUENZA VACCINE, CELL CULTURE, QUADR. (FLUCELVAX QUADRIVALENT; 6MO+) (CCIIV4)(Given 08/07/2022) * INFLUENZA VACCINE, QUADR. (FLUZONE; FLULAVAL; FLUARIX; AFLURIA QUADRIVALENT; 6MO+), 0.5 ML (IIV4)(Given 09/16/2021, 09/23/2018) * INFLUENZA VACCINE, TRIV. (FLUZONE; FLULAVAL; FLUARIX; AFLURIA TRIVALENT; 6MO+), 0.5 ML (IIV3)(Given 10/06/2017, 12/10/2012) * TDAP, HISTORIC VACCINE(Given 10/28/2021) Social History Tobacco Use Types Packs/Day Years [...] Recorded Patient Health Questionnaire-2 Score 0 01/29/2024 [facility] - Occupational Stress [...] place to sleep or slept in a prison (including now)? No 01/12/2024 Sex and Gender Information Value Date Recorded Sex Assigned at Not on file Gender Identity Not on file Sexual Orientation Not on file Last Filed Vital Signs Vital Sign Reading Time Taken Comments Blood Pressure 124/77 09/22/2024 10:38 AM CDT Pulse 73 09/22/2024 10:38 AM CDT Temperature 36.6 C (97.9 F) 01/29/2024 9:50 AM MUD LOGGER Respiratory Rate 18 01/31/2024 10:29 AM MUD LOGGER Oxygen Saturation 97% 01/31/2024 10:29 AM MUD LOGGER Inhaled Oxygen Concentration - - Weight 68 kg (150 lb) 09/22/2024 10:38 AM CDT Height 165.1 cm (5' 5 ) 09/22/2024 10:38 AM CDT Body Mass Index 24.96 09/22/2024 10:38 AM CDT Procedures * CULTURE RESPIRATORY+GRAM STAIN (STL)(Performed 09/22/2024) Performed for Chronic pansinusitis * IN NASAL ENDOSCOPY,DX(Performed 09/22/2024) Performed for Chronic pansinusitis, S/P sinus surgery * IN NASAL ENDOSCOPY,DX(Performed 07/07/2024) Performed for Chronic pansinusitis, S/P sinus surgery, Immune deficiency disorder (HCC) * IN NASAL ENDOSCOPY,DX(Performed 05/05/2024) Performed for Chronic pansinusitis, S/P sinus surgery, Immune deficiency disorder (HCC) * CBC W/O DIFFERENTIAL(Performed 01/16/2024) * BASIC METABOLIC PANEL (CALCIUM TOTAL)(Performed 01/16/2024) * MAGNESIUM BLOOD(Performed 01/16/2024) * PHOSPHORUS BLOOD(Performed 01/16/2024) * XR CHEST 1VW PORTABLE(Performed 01/16/2024) Performed for Empyema (HCC) * CBC W/O DIFFERENTIAL(Performed 01/15/2024) * BASIC METABOLIC PANEL (CALCIUM TOTAL)(Performed 01/15/2024) * MAGNESIUM BLOOD(Performed 01/15/2024) * PHOSPHORUS BLOOD(Performed 01/15/2024) * XR CHEST 1VW(Performed 01/15/2024) Performed for Empyema (HCC) * CARDIAC RHYTHM STRIP ORDER(Performed 01/14/2024) * IR PICC LINE INSERT(Performed 01/14/2024) Performed for Empyema (HCC) * XR CHEST 1VW(Performed 01/14/2024) Performed for Empyema (HCC) * CBC W/O DIFFERENTIAL(Performed 01/14/2024) * BASIC METABOLIC PANEL (CALCIUM TOTAL)(Performed 01/14/2024) * MAGNESIUM BLOOD(Performed 01/14/2024) * PHOSPHORUS BLOOD(Performed 01/14/2024) * CULTURE ANAEROBE(Performed 01/13/2024) * CULTURE FLUID+GRAM STAIN(Performed 01/13/2024) * CBC W/O DIFFERENTIAL(Performed 01/13/2024) * BASIC METABOLIC PANEL (CALCIUM TOTAL)(Performed 01/13/2024) * MAGNESIUM BLOOD(Performed 01/13/2024) * PHOSPHORUS BLOOD(Performed 01/13/2024) * EKG 12-LEAD(Performed 01/12/2024) Performed for Empyema (HCC) * CBC W/O DIFFERENTIAL(Performed 01/12/2024) * BASIC METABOLIC PANEL (CALCIUM TOTAL)(Performed 01/12/2024) * MAGNESIUM BLOOD(Performed 01/12/2024) * PHOSPHORUS BLOOD(Performed 01/12/2024) * XR CHEST 1VW PORTABLE(Performed 01/12/2024) Performed for Empyema (HCC) * HIV-1 HIV-2 ANTIBODY + HIV P24 AG PANEL(Performed 01/12/2024) * PREPARE RBC LEUKOREDUCED UNIT(Performed 01/12/2024) * XR CHEST 1VW(Performed 01/12/2024) Performed for Pleural effusion * RENAL FUNCTION PANEL(Performed 01/12/2024) * CBC W/O DIFFERENTIAL(Performed 01/12/2024) * CT CHEST WO CONTRAST(Performed 01/11/2024) Performed for Pleural effusion * CT SINUS WO CONTRAST(Performed 01/11/2024) Performed for Multifocal pneumonia * XR CHEST 1VW(Performed 01/11/2024) Performed for Pleural effusion * DIFFERENTIAL MANUAL(Performed 01/11/2024) * CBC W AUTO DIFFERENTIAL(Performed 01/11/2024) * PT EVAL AND TREAT(Performed 01/10/2024) * OT EVAL AND TREAT(Performed 01/10/2024) * DIFFERENTIAL MANUAL(Performed 01/10/2024) * MAGNESIUM BLOOD(Performed 01/10/2024) * RENAL FUNCTION PANEL(Performed 01/10/2024) * CBC W AUTO DIFFERENTIAL(Performed 01/10/2024) * XR CHEST 1VW PORTABLE(Performed 01/09/2024) Performed for Pleural effusion * CULTURE TISSUE+GRAM STAIN(Performed 01/09/2024) * CULTURE FUNGUS OTHER+FUNGUS SMEAR(Performed 01/09/2024) Performed for Diagnosis unknown * CULTURE AFB+SMEAR(Performed 01/09/2024) Performed for Diagnosis unknown * CULTURE ANAEROBE(Performed 01/09/2024) Performed for Diagnosis unknown * PATHOLOGY TISSUE EXAM (STL)(Performed 01/09/2024) Performed for Diagnosis unknown * ENDOTRACHEAL TUBE NOTE(Performed 01/09/2024) * IN THORACOSCOPY SURG PART PULM DECORT(Performed 01/09/2024) * TYPE + SCREEN PANEL(Performed 01/09/2024) * XR CHEST 1VW PORTABLE(Performed 01/09/2024) Performed for Pleural effusion * BLOOD TYPE VERIFICATION(Performed 01/09/2024) * HCG BETA BLOOD QUANTITATIVE(Performed 01/09/2024) Performed for Pleural effusion * MAGNESIUM BLOOD(Performed 01/09/2024) * RENAL FUNCTION PANEL(Performed 01/09/2024) * CBC W AUTO DIFFERENTIAL(Performed 01/09/2024) * CT CHEST WO CONTRAST(Performed 01/08/2024) Performed for Pleural effusion * IR PLEURAL DRAIN(Performed 01/08/2024) Performed for Pleural effusion * CYTOLOGY NON-EDUCATIONAL TECHNICIAN PANEL (STL)(Performed 01/08/2024) Performed for Pleural effusion, Multifocal pneumonia * DIFFERENTIAL MANUAL FLUID(Performed 01/08/2024) * ALBUMIN FLUID(Performed 01/08/2024) * LDH FLUID(Performed 01/08/2024) * PROTEIN FLUID(Performed 01/08/2024) * GLUCOSE FLUID(Performed 01/08/2024) * CELL COUNT W DIFFERENTIAL FLUID(Performed 01/08/2024) * CULTURE ANAEROBE(Performed 01/08/2024) * CULTURE FUNGUS OTHER+FUNGUS SMEAR(Performed 01/08/2024) * CULTURE FLUID+GRAM STAIN(Performed 01/08/2024) * DIFFERENTIAL MANUAL(Performed 01/08/2024) * MAGNESIUM BLOOD(Performed 01/08/2024) * CBC W AUTO DIFFERENTIAL(Performed 01/08/2024) * RENAL FUNCTION PANEL(Performed 01/08/2024) * STREP PNEUMONIAE ANTIGEN URINE(Performed 01/08/2024) * LEGIONELLA ANTIGEN URINE(Performed 01/08/2024) * MRSA DNA PCR(Performed 01/08/2024) * CULTURE BLOOD(Performed 01/07/2024) * VITAMIN B12(Performed 01/07/2024) * SLIDE SCAN HEMATOLOGY(Performed 01/07/2024) * MAGNESIUM BLOOD(Performed 01/07/2024) * CBC W AUTO DIFFERENTIAL(Performed 01/07/2024) * BASIC METABOLIC PANEL (CALCIUM TOTAL)(Performed 01/07/2024) * CULTURE BLOOD(Performed 01/07/2024) * XR CHEST 1VW PORTABLE(Performed 01/07/2024) Performed for Pleural effusion * PTT(Performed 01/07/2024) * PT-INR(Performed 01/07/2024) * DIFFERENTIAL MANUAL(Performed 01/07/2024) * HYDROXYBUTYRATE BETA(Performed 01/07/2024) * LDH BLOOD(Performed 01/07/2024) * CBC W AUTO DIFFERENTIAL(Performed 01/07/2024) * PHOSPHORUS BLOOD(Performed 01/07/2024) * MAGNESIUM BLOOD(Performed 01/07/2024) * COMPREHENSIVE METABOLIC PANEL(Performed 01/07/2024) * LACTIC ACID BLOOD(Performed 01/07/2024) * FLOW CYTOMETRY BODY FLUID(Performed 01/06/2024) Performed for Pleural condition, unspecified * DERMATOPATHOLOGY(Performed 05/17/2021) Results * (ABNORMAL) CULTURE RESPIRATORY+GRAM STAIN (STL) (09/22/2024 11:19 AM CDT) Culture Light Staphylococcus pseudintermedius(A) AL 09/24/2024 12:00 PM CDT [facility] MICROBIOLOGY Gram Stain Light Polymorphonuclear cells 09/24/2024 12:00 PM CDT [facility]CRO[facility] Gram Stain Light Gram-positive cocci 09/24/2024 12:00 PM CDT [facility] MICRO[facility]OLOG[facility] Microbiology SINUS / Unknown Collection / Unknown 09/22/2024 11:19 AM CDT 09/22/2024 5:33 PM CDT Antoine Quezada MD LAB - MICROBIOLOGY ORDERABLES [facility]CRO[facility] [address] [place] [address], [facility] [phone] * IN NASAL ENDOSCOPY,DX (09/22/2024 11:14 AM CDT) Narrative Antoine Quezada MD - 09/22/2024 11:14 AM CDT Antoine Quezada MD 09/22/2024 12:22 PM Procedure: Rigid Nasal Endoscopy Anesthesia: None Detail: Rigid nasal endoscopy performed bilaterally. We visualized the entire septum as well as the inferior turbinate, middle turbinate, superior turbinate and sphenoethmoid recess. We also visualized the nasopharynx. Unless mentioned below these structures were normal. Septum was essentially midline. On both sides has had previous middle turbinate resection. Today there is some thick mucus throughout, greater on the right than the left. I cultured this. In the ethmoid cavity on both sides there is early polypoid changes. We compared this to her previous visit and overall it is likely slightly better. All sinuses are open on both sides. Reviewed video with patient. Antoine Quezada MD PROCEDURE/MINOR LEANNA GICAL ORDERABLES * IN NASAL ENDOSCOPY,DX (07/07/2024 1:30 PM CDT) Antoine Francisco MD - 07/07/2024 1:30 PM CDT Antoine Quezada MD 07/07/2024 2:22 PM Procedure: Rigid Nasal Endoscopy Anesthesia: none Detail: Rigid nasal endoscopy performed bilaterally. We visualized the entire septum as well as the inferior turbinate middle turbinate and superior turbinate. We also visualize the nasopharynx. Unless mentioned below these structures were normal. Septum was essentially midline. Bilateral nasal cavity showed marginally more small polyps than previously (~10% more) and stringy mucus. The polyps were primarily superiorly in the left frontal and a small amount coming out of the right frontal into the right ethmoids. Maxillary and sphenoids are largely open. There is a small amount of green mucus coming out of the floor of the left max. Antoine Quezada MD PROCEDURE/MINOR LEANNA GICAL ORDERABLES * IN NASAL ENDOSCOPY,DX (05/05/2024 1:18 PM CDT) Antoine Francisco MD - 05/05/2024 1:18 PM CDT Antoine Quezada MD 05/11/2024 1:46 PM Procedure: Rigid Nasal Endoscopy Anesthesia: Bilateral Nasal Cavities sprayed with lidocaine and Neosynephrine Detail: Rigid nasal endoscopy performed bilaterally. We visualized the entire septum as well as the inferior turbinate middle turbinate and superior turbinate. We also visualize the nasopharynx. Unless mentioned below these structures were normal. Septum without significant deviation. Bilateral nasal cavity showed significant resection of the middle turbinates. I am able to visualize and the bilateral four open sinuses. Some mild dried allergic mucin. There is significant edema of the bilateral superior ethmoids with polypoid mucosa within the frontal outflow tracts and precluding visualization within. Inferior ethmoids, maxillary and sphenoid sinuses open with only some mild edema. Antoine Quezada MD PROCEDURE/MINOR LEANNA GICAL ORDERABLES * (ABNORMAL) CBC W/O DIFFERENTIAL (01/16/2024 5:20 AM MUD LOGGER) Only the most recent of6 resultswithin the time period is included. WBC 11.2(H) 4.0 - 10.7 x10E9/L 01/16/2024 6:48 AM [facility] RBC Count 2.63(L) 3.90 - 5.20 x10E12/L 01/16/2024 6:48 AM [facility] Hemoglobin 7.7(L) 11.9 - 15.8 g/dL 01/16/2024 6:48 AM [facility] Hematocrit 24.4(L) 34.8 - 46.1 % 01/16/2024 6:48 AM [facility] MCV 92.8 80.0 - 98.0 fL 01/16/2024 6:48 AM [facility] MCH 29.3 26.7 - 33.6 pg 01/16/2024 6:48 AM [facility] MCHC 31.6(L) 31.7 - 36.3 g/dL 01/16/2024 6:48 AM [facility] RDW-CV 14.8 11.3 - 14.8 % 01/16/2024 6:48 AM [facility] Platelet Count 863(H) 150 - 420 x10E9/L 01/16/2024 6:48 AM [facility] MPV 8.8 7.8 - 11.4 fL 01/16/2024 6:48 AM [facility] Blood BLOOD SPECIMEN / Unknown Lab Venipuncture / Unknown 01/16/2024 5:20 AM MUD LOGGER 01/16/2024 6:25 AM MUD LOGGER Yoav Sanchez MD LAB - HEMATOLOGY ORD ERABLES [facility] [address] [place] [address], [facility] [phone] * (ABNORMAL) BASIC METABOLIC PANEL (CALCIUM TOTAL) (01/16/2024 5:20 AM MUD LOGGER) Only the most recent of6 resultswithin the time period is included. BUN 9 7 - 26 mg/dL 01/16/2024 6:50 AM [facility] Creatinine 0.51(L) 0.56 - 0.96 mg/dL 01/16/2024 6:50 AM [facility] Sodium 138 136 - 145 mmol/L 01/16/2024 6:50 AM [facility] Potassium 4.0 3.5 - 4.5 mmol/L 01/16/2024 6:50 AM [facility] Chloride 107 98 - 107 mmol/L 01/16/2024 6:50 AM [facility] CO2 27 22 - 29 mmol/L 01/16/2024 6:50 AM [facility] Glucose 86 70 - 115 mg/dL 01/16/2024 6:50 AM [facility] Calcium 8.1(L) 8.4 - 10.2 mg/dL 01/16/2024 6:50 AM [facility] Anion Gap 4(L) 6 - 16 01/16/2024 6:50 AM [facility] BUN/Creatinine Ratio 18 7 - 23 01/16/2024 6:50 AM [facility] Osmolality Calculated 284 275 - 295 mOsm/kg 01/16/2024 6:50 AM [facility] eGFR by CKD-EPI >90 >=90 mL/min/1.7 3 m2 01/16/2024 6:50 AM [facility] Blood BLOOD SPECIMEN / Unknown Lab Venipuncture / Unknown 01/16/2024 5:20 AM MUD LOGGER 01/16/2024 6:24 AM MUD LOGGER Yoav Sanchez MD LAB - CHEMISTRY ORDLee RAY [address] [address], [facility] [phone] * (ABNORMAL) PHOSPHORUS BLOOD (01/16/2024 5:20 AM MUD LOGGER) Only the most recent of6 resultswithin the time period is included. Phosphorus 2.2(L) 2.9 - 5.1 mg/dL 01/16/2024 6:50 AM MUD LOGGER [facility] Blood BLOOD SPECIMEN / Unknown Lab Venipuncture / Unknown 01/16/2024 5:20 AM MUD LOGGER 01/16/2024 6:24 AM MUD LOGGER Yoav Sanchez MD LAB - CHEMISTRY ALFREDO RAY Performing Organization Address [facility] [address]/[facility] Co de Phone Number [address] [address], [facility] [phone] * MAGNESIUM BLOOD (01/16/2024 5:20 AM MUD LOGGER) Only the most recent of10 resultswithin the time period is included. Magnesium 1.7 1.6 - 2.6 mg/dL 01/16/2024 6:50 AM MUD LOGGER [facility] Blood BLOOD SPECIMEN / Unknown Lab Venipuncture / Unknown 01/16/2024 5:20 AM MUD LOGGER 01/16/2024 6:24 AM MUD LOGGER Yoav Sanchez MD LAB - CHEMISTRY ALFREDO RAY Performing Organization Address [facility] [address]/[facility] Co de Phone Number [address] [phone], [facility] [phone] * XR CHEST 1VW PORTABLE (01/16/2024 4:53 AM MUD LOGGER) Only the most recent of5 resultswithin the time period is included. Anatomical Region Laterality Modality Chest Radiographic Estefania ging 01/16/2024 10:3 4 AM MUD LOGGER Narrative 01/16/2024 10:36 AM MUD LOGGER PROCEDURE: XR CHEST 1VW PORTABLE DATE/TIME OF EXAM: 01/16/2024 4:53 AM CLINICAL INFORMATION: None relevant/not provided if blank. Indication: J86.9: Empyema (CMS-HCC) Additional History: COMPARISON: 01/15/2024 FINDINGS/impression: Right upper extremity approach PICC line tip is at the level superior vena cava. The previously seen left chest tube has been removed. The heart remains enlarged. Left lower lobe atelectasis/pleural effusion is present. There is extensive interstitial opacities in both lungs likely representing pulmonary vascular congestion/edema. Superimposed infection cannot be excluded. There is no pneumothorax. The visible bony thorax is intact. > Interpreting Provider: Paula Rome MD on 01/16/2024 10:36 AM Procedure Note Monet Rome MD - 01/16/2024 PROCEDURE: XR CHEST 1VW PORTABLE DATE/TIME OF EXAM: 01/16/2024 4:53 AM CLINICAL INFORMATION: None relevant/not provided if blank. Indication: J86.9: Empyema (CMS-HCC) Additional History: COMPARISON: 01/15/2024 FINDINGS/impression: Right upper extremity approach PICC line tip is at the level superiorvena cava. The previously seen left chest tube has been removed. The heart remains enlarged. Left lower lobe atelectasis/pleural effusionis present. There is extensive interstitial opacities in both lungs likely representing pulmonary vascular congestion/edema. Superimposed infection cannot be excluded. There is no pneumothorax. The visible bony thorax is intact. > Interpreting Provider: Paula Rome MD on 01/16/2024 10:36 AM Yoav Sanchez MD DIAGNOSTIC IMAGING O RDERABLES * XR CHEST 1VW (01/15/2024 5:09 AM MUD LOGGER) Only the most recent of4 resultswithin the time period is included. Anatomical Region Laterality Modality Chest Radiographic Estefania ging 01/15/2024 3:39 PM MUD LOGGER Narrative 01/15/2024 5:26 PM MUD LOGGER PROCEDURE: XR CHEST 1VW, DATE/TIME OF EXAM: 01/15/2024 5:09 AM, LOCATION [facility] INDICATION: J86.9: Empyema (CMS-HCC) COMPARISON: X-ray chest 01/14/2024. TECHNIQUE: Frontal radiograph of the chest. FINDINGS/IMPRESSION: *Right upper extremity approach PICC line tip terminates at the superior vena cava. *Similar position of the left basilar oriented thoracostomy tube with adjacent soft tissue gas. Redemonstrated unchanged left mid/lower lung zone opacification. Stable trace right pleural effusion. No pneumothorax is visible. The cardiomediastinal silhouette is obscured. The visible bony thorax is intact. Report dictated by Jose Mckeon MD, (Event Decorator And Designer). IPaula MD have personally reviewed and interpreted this examination/study. > Interpreting Provider: Paula Rome MD on 01/15/2024 5:26 PM Procedure Note Monet Rome MD - 01/15/2024 PROCEDURE: XR CHEST 1VW, DATE/TIME OF EXAM: 01/15/2024 5:09 AM, LOCATION [facility] INDICATION: J86.9: Empyema ([facility]-HCC) COMPARISON: X-ray chest 01/14/2024. TECHNIQUE: Frontal radiograph of the chest. FINDINGS/IMPRESSION: *Right upper extremity approach PICC line tip terminates at the superior vena cava. *Similar position of the left basilar oriented thoracostomy tube with adjacent soft tissue gas. Redemonstrated unchanged left mid/lower lung zone opacification. Stable trace right pleural effusion. No pneumothorax is visible. The cardiomediastinal silhouette is obscured. The visible bony thorax is intact. Report dictated by Jose Mckeon MD, (Event Decorator And Designer). IPaula MD have personally reviewed and interpreted this examination/study. > Interpreting Provider: Paula Rome MD on 01/15/2024 5:26 PM Yoav Sanchez MD DIAGNOSTIC IMAGING O RDERABLES * CARDIAC RHYTHM STRIP ORDER (01/14/2024 9:09 PM MUD LOGGER) Narrative 01/14/2024 9:09 PM MUD LOGGER Ordered by an unspecified provider. Scanned Document CARDIAC SERVICES ORD ERABLES * IR PICC LINE INSERT (01/14/2024 5:00 PM MUD LOGGER) Anatomical Region Laterality Modality Chest, Upper Extremity Other Narrative 01/14/2024 5:18 PM Viktoria Lyons RN 01/15/2024 9:31 AM Department of Interventional Radiology Procedure Note: PICC line placement History: Tasia Grande is a 38 year old female who recently underwent sinus surgery for chronic sinusitis positive for sinusitis presents for shortness of breath and flu-like symptoms. Indication: IV antibiotic therapy Manager Supplier: Viktoria Floyd RN Procedures: 1. Limited extremity ultrasound to assess vascular patency 2. Ultrasound guided access of the Right basilic vein. 3. Placement of peripherally inserted central line with magnetic tracking and ECG tip positioning system ([employer]). Anesthesia: Local anesthesia with 3mL of 1% Lidocaine without epinephrine Procedure in detail: Type of line placed: Single Lumen Power PICC The risks and benefits of PICC placement were explained to Patient. The risks include discussed include pain, inadvertent arterial puncture, infection, blood clots, phlebitis, and cardiac arrhythmias. They were able to consent to the PICC insertion. Timeout and hand hygiene completed prior to procedure. Traffic was limited in the room during the procedure. Skin prepped with appropriate antibacterial solution prior to skin puncture. Maximum sterile barrier precautions were used including sterile gown and gloves, hat, mask, eye protection and a large sterile drape. Limited ultrasound of the the basilic vein demonstrated patent and compressible vein. A barros scale image was documented. The patient was given local anesthesia with 3 milliliters of 1% Lidocaine without epinephrine. The basilic vein was accessed using a micropuncture needle. The needle entry was documented. A 0.018-inch guidewire was then advanced centrally. A small dermatotomy was made at the puncture site, and then the peel-away sheath was advanced into the vein. The length of the catheter was assessed with magnetic tracking and ECG tip positioning system. The PICC line pre-loaded with magnetic tip was then introduced through the peel-away sheath and advanced to the right atrium near the cavoatrial junction. The single lumen PICC was placed using the Seldinger technique with a Right Basilic approach without complication. There was dark, non-pulsatile blood return in all ports and they were easily flushed with saline. The tip of the catheter was guided by the magnetic tracking and ECG tip positioning system ([employer]), The peel-away sheath was removed, and the PICC was secured to the skin with a engineered securement device. An overlying dressing was placed. PICC tip position was verified by ultrasound ECG device. This showed PICC tip in good position in the distal SVC. Reposition of the PICC was not indicated. The patient tolerated the procedure well. Patient Guide Booklet and Fact Sheet for preventing infection placed in chart for discharge packet. Reviewed with: patient and RN Complications: none. All the ports were aspirated and flushed to assure patency. The patient tolerated this procedure without apparent immediate complication. Impression: Successful placement of 35 cm PICC Fr: 4 F single lumen power PICC via the Right basilic vein with tip in the cavo-atrial junction. The procedure was performed by Viktoria Floyd RN. The final image was reviewed by , Interventional Radiology Attending- Tan Buck MD The catheter can be used now. Yoav Sanchez MD IR ORDERABLES * (ABNORMAL) CULTURE FLUID+GRAM STAIN (01/13/2024 6:04 PM MUD LOGGER) Only the most recent of2 resultswithin the time period is included. Culture Rare Fusarium species(AA) AL 01/17/2024 2:29 PM MUD [facility]ER [facility] [facility]CRO[facility] Gram Stain No organisms seen 024 2:29 PM MUD LOGGER [facility] Gram Stain No polymorphonuclear cells 01/17/2024 2:29 PM MUD LOGGER [facility] Fluid BODY FLUID SPECIMEN / Unknown Collection / Unknown 01/13/2024 6:04 PM MUD LOGGER 01/13/2024 11:20 PM MUD LOGGER Yoav Sanchez MD LAB - MICROBIOLOGY O RDERABLES [facility] [address] [place] [phone] * (ABNORMAL) CULTURE ANAEROBE (01/13/2024 6:04 PM MUD LOGGER) Only the most recent of3 resultswithin the time period is included. Culture Rare Cutibacterium (formerly Propionibacterium ) acnes(AA) AL 01/20/2024 2:40 PM MUD LOGGER [facility] Microbiology BODY FLUID SPECIMEN / Unknown Collection / Unknown 01/13/2024 6:04 PM MUD LOGGER 01/13/2024 6:08 PM MUD LOGGER Yoav Sanchez MD LAB - MICROBIOLOGY O RDERABLES [facility] [address] [place] [address], [facility] [phone] * EKG 12-LEAD (01/12/2024 10:38 PM MUD LOGGER) Ventricular Rate 112 BPM [facility]USE Atrial Rate 112 BPM [facility] MUSE P-R Interval 114 ms [facility] M[facility] QRS Duration ms 78 ms [facility]USE Q-T Interval ms 316 ms [facility] M[facility] QTC Calculation (Bezet) 431 ms [facility] MUSE Calculated P [place] 30 degrees [facility]USE Calculated R [place] 30 degrees [facility] MUSE Calculated T [place] 29 degrees [facility] MUSE Interpretation EKG SINUS TACHYCARDIA OTHERWISE NORMAL ECG NO PREVIOUS ECGS AVAILABLE Confirmed by DAVIAN MALONE MD ([id number]) on 01/13/2024 9:18:27 PM [facility] MUSE 01/12/2024 10:3 8 PM MUD LOGGER 01/13/2024 9:18 PM MUD LOGGER Yoav Sanchez MD ECG ORDERABLES Performing Organization Address [facility] [address]/ZIP Co de Phone Number [facility] MUSE * HIV-1 HIV-2 ANTIBODY + HIV P24 AG PANEL (01/12/2024 11:58 AM MUD LOGGER) Pathologist [facility] HIV1/2 Ab + P24 Ag Non Reactive Non Reactive 01/12/2024 12:56 PM MUD LOGGER [facility] Blood BLOOD SPECIMEN / Unknown Lab Venipuncture / Unknown 01/12/2024 11:58 AM MUD LOGGER 01/12/2024 12:18 PM MUD LOGGER Narrative [facility] - 01/12/2024 12:56 PM MUD LOGGER No Laboratory evidence of HIV infection. Yoav Sanchez MD LAB - CHEMISTRY ALFREDO RAY [facility] [address] [place] [address] * PREPARE (CROSSMATCH) RBC UNIT(S), 2 Units (01/12/2024 6:56 AM MUD LOGGER) Unit Description AS1 LR PRBC [facility] Unit ABO O [facility] Unit Rh POS [facility] Product Number R02 [facility] Unit Donor # [id number] [facility] Unit Status released [facility] Product Code [id number] [facility] Blood Type Barcode 5100 [facility] Expiration Date [facility] Unit Description AS1 LR PRBC [facility] Unit ABO O [facility] Unit Rh POS [facility] Product Number R02 [facility] Unit Donor # [id number] [facility] BLOOD [facility] LAB Unit Status released [facility] OD [facility]ANK LAB Product Code [id number] [facility] Blood Type Barcode 5100 [facility] Expiration Date [facility] Blood Bank BLOOD SPECIMEN / Unknown 01/09/2024 8:24 AM MUD LOGGER Elli Rosado MD LAB - BLOOD BANK ORD ERABLES [facility] [address] [place] [address] * (ABNORMAL) RENAL FUNCTION PANEL (01/12/2024 2:48 AM MUD LOGGER) Only the most recent of4 resultswithin the time period is included. Glucose 108(H) 70 - 105 mg/dL 01/12/2024 3:43 AM MUD LOGGER [facility] Sodium 135(L) 136 - 145 mmol/L 01/12/2024 3:43 AM [facility] Potassium 3.8 3.5 - 5.1 mmol/L 01/12/2024 3:43 AM [facility] Chloride 105 98 - 107 mmol/L 01/12/2024 3:43 AM [facility] CO2 24 22 - 29 mmol/L 01/12/2024 3:43 AM MUD LOGGER [facility] Calcium 8.0(L) 8.4 - 10.4 mg/dL 01/12/2024 3:43 AM [facility] Anion Gap 6 6 - 16 mmol/L 01/12/2024 3:43 AM [facility] BUN 16 5.3 - 18.7 mg/dL 01/12/2024 3:43 AM [facility] Creatinine 0.55(L) 0.57 - 1.11 mg/dL 01/12/2024 3:43 AM [facility] Albumin 1.7(L) 3.4 - 5.0 gm/dL 01/12/2024 3:43 AM [facility] Phosphorus 3.2 2.3 - 4.7 mg/dL 01/12/2024 3:43 AM [facility] eGFR by CKD-EPI >90 >=90 mL/min/1.7 3 m2 01/12/2024 3:43 AM [facility] Blood BLOOD SPECIMEN / Unknown Lab Venipuncture / Unknown 01/12/2024 2:48 AM MUD LOGGER 01/12/2024 3:14 AM MUD LOGGER Elli Rosado MD LAB - CHEMISTRY ORDE [facility] Organization Address City/State/[facility] Co de Phone Number [facility] [address], [place] [id number] * CT CHEST WO CONTRAST (01/11/2024 12:43 PM MUD LOGGER) Only the most recent of2 resultswithin the time period is included. Anatomical Region Laterality Modality Chest Computed Tomogra phy 01/11/2024 12:4 8 PM MUD LOGGER Narrative 01/11/2024 12:59 PM MUD LOGGER PROCEDURE: CT CHEST WO CONTRAST, DATE/TIME OF EXAM: 01/11/2024 12:43 PM, LOCATION [facility] INDICATION: J90: Pleural effusion, not elsewhere classified CT CHEST HISTORY: Pleural effusion and history of empyema. TECHNIQUE: Noncontrast CT is compared to 01/08/2024. FINDINGS: Since the prior examination, there has been placement of a large bore left chest tube. A large amount of subcutaneous gas is seen along the left lateral chest wall. There is increased air within the pleural space. There has been interval improvement of a left pleural effusion with likely areas of persistent loculation of the left lung base and along the left mediastinal and anterior pleural margin. Likely pleural thickening is present. There are consolidating infiltrates in the left lower lobe and interstitial infiltrates throughout the left upper lobe. No shift of the heart or mediastinal structures is seen. The heart size is normal. There is likely pericardial thickening, and there may be a small amount of pericardial fluid. Prominent mediastinal lymph nodes are redemonstrated. Minimal nodularity along the right major fissure and interstitial infiltrates in the right upper lobe are present. There is a tiny right pleural effusion. The visualized structures in the upper abdomen are grossly normal. DIAGNOSIS: As described. Follow-up CT with contrast could be obtained. Edited by Ruth Dean on 01/11/2024 12:58 PM > Interpreting Provider: Howard Lynch MD on 01/11/2024 12:59 PM Procedure Note Howard Lynch MD - 01/11/2024 PROCEDURE: CT CHEST WO CONTRAST, DATE/TIME OF EXAM: 01/11/2024 12:43PM, LOCATION [facility] INDICATION: J90: Pleural effusion, not elsewhere classified CT CHEST HISTORY: Pleural effusion and history of empyema. TECHNIQUE: Noncontrast CT is compared to 01/08/2024. FINDINGS: Since the prior examination, there has been placement of a large boreleft chest tube. A large amount of subcutaneous gas is seen along the left lateral chest wall. There is increased air within the pleural space.There has been interval improvement of a left pleural effusion with likelyareas of persistent loculation of the left lung base and along the left mediastinal and anterior pleural margin. Likely pleural thickening is present. There are consolidating infiltrates in the left lower lobe and interstitial infiltrates throughout the left upper lobe. No shift of the heart or mediastinal structures is seen. The heart size is normal. There is likely pericardial thickening, andthere may be a small amount of pericardial fluid. Prominent mediastinal lymph nodes are redemonstrated. Minimal nodularity along the right major fissure and interstitial infiltrates in the right upper lobe are present. There is a tiny right pleural effusion. The visualized structures in the upper abdomen are grossly normal. DIAGNOSIS: As described. Follow-up CT with contrast could be obtained. Edited by Ruth Dean on 01/11/2024 12:58 PM > Interpreting Provider: Howard Lynch MD on 01/11/2024 12:59 PM Elli Rosado MD CT ORDERABLES * CT SINUS WO CONTRAST (01/11/2024 12:37 PM MUD LOGGER) Anatomical Region Laterality Modality Head Computed Tomogra phy 01/11/2024 12:4 5 PM MUD LOGGER Impressions 01/11/2024 12:46 PM MUD LOGGER IMPRESSION: 1. Diffuse sinusitis with postsurgical changes in the maxillary sinuses. Correlation for underlying bacterial infection is recommended. > Interpreting Provider: Faisal López MD on 01/11/2024 12:46 PM Narrative 01/11/2024 12:46 PM MUD LOGGER PROCEDURE: CT SINUS WO CONTRAST DATE/TIME OF EXAM: 01/11/2024 12:38 PM CLINICAL INFORMATION: None relevant/not provided if blank. Indication: J18.9: Pneumonia, unspecified organism Additional History: COMPARISON: None. TECHNIQUE: CT of the paranasal sinuses was performed utilizing thin axial collimation without contrast with the localization protocol. Coronal reformatted images were rendered. CT dose reduction technique was used including Automated Exposure Control. FINDINGS: There are air-fluid levels seen in the bilateral maxillary sinuses and postsurgical changes seen in the maxillary sinuses findings are concerning for acute sinusitis. Air-fluid level seen in the sphenoid sinuses and ethmoid air cells and frontal sinuses are also noted. There is also a right mastoid effusion seen. Some fluid is noted in the nasopharynx. The soft tissues otherwise appear unremarkable. The visualized portions of the orbits and brain appear normal. Procedure Note Faisal López MD - 01/11/2024 PROCEDURE: CT SINUS WO CONTRAST DATE/TIME OF EXAM: 01/11/2024 12:38 PM CLINICAL INFORMATION: None relevant/not provided if blank. Indication: J18.9: Pneumonia, unspecified organism Additional History: COMPARISON: None. TECHNIQUE: CT of the paranasal sinuses was performed utilizing thin axialcollimation without contrast with the localization protocol. Coronal reformattedimages were rendered. CT dose reduction technique was used including Automated ExposureControl. FINDINGS: There are air-fluid levels seen in the bilateral maxillary sinuses and postsurgical changes seen in the maxillary sinuses findings areconcerning for acute sinusitis. Air-fluid level seen in the sphenoid sinuses and ethmoid air cells and frontal sinuses are also noted. There is also aright mastoid effusion seen. Some fluid is noted in the nasopharynx. The soft tissues otherwise appear unremarkable. The visualized portions of the orbits and brain appear normal. IMPRESSION: 1. Diffuse sinusitis with postsurgical changes in the maxillary sinuses. Correlation for underlying bacterial infection is recommended. > Interpreting Provider: Faisal López MD on 01/11/2024 12:46 PM Elli Rosado MD CT ORDERABLES * (ABNORMAL) DIFFERENTIAL MANUAL (01/11/2024 4:05 AM MUD LOGGER) Only the most recent of4 resultswithin the time period is included. Neutrophil % 74 41 - 74 % 01/11/2024 5:28 AM MUD LOGGER [facility] Lymphocyte % 20 17 - 47 % 01/11/2024 5:28 AM MUD LOGGER [facility] Monocyte % 4 3 - 11 % 01/11/2024 5:28 AM MUD LOGGER [facility] Metamyelocyte % 1(H) 0% % 5:28 AM MUD LOGGER [facility] Myelocyte % 1(H) 0% % 01/11/2024 5:28 AM MUD LOGGER [facility] Neutrophil Absolute 13.32(H) 1.60 - 7.50 x10E9/L 01/11/2024 5:28 AM MUD LOGGER [facility] Lymphocyte Absolute 3.60 1.00 - 4.40 x10E9/L 01/11/2024 5:28 AM MUD LOGGER [facility] Monocyte Absolute 0.72 0.15 - 1.00 x10E9/L 01/11/2024 5:28 AM MUD LOGGER [facility] RBC Morphology NORMAL 01/11/2024 5:28 AM [facility] Blood BLOOD SPECIMEN / Unknown Lab Venipuncture / Unknown 01/11/2024 4:05 AM MUD LOGGER 01/11/2024 4:16 AM MUD LOGGER Elli Rosado MD LAB - HEMATOLOGY ORD ERABLES [facility] [address] [place] [address] * (ABNORMAL) CBC W AUTO DIFFERENTIAL (01/11/2024 4:05 AM MUD LOGGER) Only the most recent of6 resultswithin the time period is included. WBC 18.0(H) 4.0 - 10.7 x10E9/L 01/11/2024 5:28 AM [facility] RBC Count 3.52(L) 3.90 - 5.20 x10E12/L 01/11/2024 5:28 AM [facility] Hemoglobin 10.1(L) 11.9 - 15.8 g/dL 01/11/2024 5:28 AM [facility] Hematocrit 32.8(L) 34.8 - 46.1 % 01/11/2024 5:28 AM [facility] MCV 93.2 80.0 - 98.0 fL 01/11/2024 5:28 AM [facility] MCH 28.7 26.7 - 33.6 pg 01/11/2024 5:28 AM [facility] MCHC 30.8(L) 31.7 - 36.3 g/dL 01/11/2024 5:28 AM [facility] RDW-CV 14.7 11.3 - 14.8 % 01/11/2024 5:28 AM [facility] Platelet Count 581(H) 150 - 420 x10E9/L 01/11/2024 5:28 AM [facility] MPV 8.8 7.8 - 11.4 fL 01/11/2024 5:28 AM [facility] Blood BLOOD SPECIMEN / Unknown Lab Venipuncture / Unknown 01/11/2024 4:05 AM MUD LOGGER 01/11/2024 4:16 AM MUD LOGGER Elli Rosado MD LAB - HEMATOLOGY ORD ERABLES [facility] [address] [place], [place] [id number] * CULTURE FUNGUS OTHER+FUNGUS SMEAR (01/09/2024 10:00 AM MUD LOGGER) Only the most recent of2 resultswithin the time period is included. Culture No fungus isolated AL 02/03/2024 8:15 AM CDT [facility] Fungus Stain No Pneumocystis jirovecii 02/03/2024 8:15 AM CDT [facility] Fungus Stain No yeast or hyphae seen 02/03/2024 8:15 AM CDT [facility] Fluid PLEURAL FLUID / Unknown Collection / Unknown 01/09/2024 10:00 AM MUD LOGGER 01/09/2024 11:49 AM MUD LOGGER Narrative [facility] - 02/03/2024 8:15 AM CDT Surgical Description: Pleura Material Yoav Sanchez MD LAB - MICROBIOLOGY O KRIS Performing Organization Address City/[facility] [address]/ZIP Co de Phone Number [facility] [address] [place] [address], [facility] [phone] * CULTURE TISSUE+GRAM STAIN (01/09/2024 10:00 AM MUD LOGGER) Culture No growth AL 01/12/2024 3:35 PM MUD LOGGER [facility] Gram Stain Light Polymorphonuclear cells 01/12/2024 3:35 PM MUD LOGGER [facility] Gram Stain No organisms seen 024 3:35 PM MUD LOGGER [facility] Microbiology ENTIRE PLEURA / Unknown Collection / Unknown 01/09/2024 10:00 AM MUD LOGGER 01/09/2024 2:42 PM MUD LOGGER Yoav Sanchze MD LAB - MICROBIOLOGY O KRIS [facility] [address] [place] [address], [facility] [phone] * CULTURE AFB+SMEAR (01/09/2024 10:00 AM MUD LOGGER) Culture No acid-fast bacillus isolated 02/17/2024 7:32 AM CDT [facility] AFB Smear No acid-fast bacilli seen 02/17/2024 7:32 AM CDT [facility] Fluid PLEURAL FLUID / Unknown Collection / Unknown 01/09/2024 10:00 AM MUD LOGGER 01/09/2024 11:49 AM MUD LOGGER Narrative [facility] - 02/17/2024 7:32 AM CDT Surgical Description: Pleura Material Yoav Sanchez MD LAB - MICROBIOLOGY O RDERABLES [facility] [address] [place] [address], [facility] [phone] * PATHOLOGY TISSUE EXAM (STL) (01/09/2024 9:54 AM MUD LOGGER) Case Report Surgical Pathology Report Case: [id number] Authorizing Provider: Yoav Sanchez MD Collected: 01/09/2024 09:54 AM Ordering Location: [address] TELE Received: 01/09/2024 12:06 PM Pathologist: Fadi Saini MD Specimen: Pleura, pleura material 01/13/2024 1:46 PM MUD LOGGER [facility] Final Diagnosis Pleural material, left: - Mixed inflammatory cell and fibrinoid debris with necrosis 01/13/2024 1:46 PM [facility] Clinical History Purulent left pleural effusion and thin/soft whitish rind over entire left pleural surface. 01/13/2024 1:46 PM [facility] Gross Description The specimen is identified with the patient's name and date of . Received fresh, specimen A, pleural material is an aggregate of barros-white tissue/material (4.5 x 3.5 x 0.1 cm). Manager Event sections submitted in cassette A1. LJ 01/13/2024 1:46 PM [facility] Microscopic Description There is abundant mixed inflammatory cell and fibrinous debris. An immunohistochemical panel (calretinin, CD68, and MOC31) is performed on sections with appropriate control for each marker. The calretinin and CD68 stains highlight the mesothelial and histiocytic components, respectively. The MOC31 stain highlights a miniscule epithelial fragments, possibly a contaminant from an unrelated case. No other MOC31 positivity is observed. 01/13/2024 1:46 PM [facility] Pathologist Location at [facility] 01/13/2024 1:46 PM [facility] Disclaimer All histochemical and/or immunohistochemical results are interpreted with controls that demonstrate appropriate staining reactions before reporting results. Note on use of immunocytochemistry reagents: This test was developed and its performance characteristic determined by [facility], Department of Laboratory Medicine. It has not been cleared or approved by the U.S. Food and Drug Administration (FDA). The FDA has determined that such clearance or approval is not necessary. The test is used for clinical purpose. It should not be regarded as investigational or for research. This laboratory is certified to perform high complexity testing. The performance characteristics of the IHC/VIVIENNE assays have been validated on formalin-fixed paraffin embedded tissues only. The assays have not been validated on decalcified tissues. Results should be interpreted with caution. 01/13/2024 1:46 PM [facility] Embedded Images 01/13/2024 1:46 PM [facility] Pathology/Cytolo gy ENTIRE PLEURA / Unknown 01/09/2024 9:54 AM MUD LOGGER 01/09/2024 12:06 PM MUD LOGGER Yoav Sanchez MD LAB - PATHOLOGY/CYTO LOGY ORDERABLES Performing Organization Address [facility]/State/[facility] Co de Phone Number [facility] [address] [place] [address] * ETT LINE PERFORMABLE (01/09/2024 9:53 AM MUD LOGGER) Narrative Michelle Llanes APRN-CRNA - 01/09/2024 9:53 AM MUD LOGGER Michelle Llanes APRN-CRNA 01/09/2024 9:55 AM Endotracheal Tube Placement: Patient Location: OR. Intubation Event Date/Time: 01/09/2024 9:21 AM Procedure: intubation ([id number]). Procedure Section: Sedation: under general anesthesia. Indications for Airway Management: anesthesia Procedure pretreatments used? No Induction: standard IV Patient Position: sniffing Mask Ventilation: easy. Blade Type: Video Blade Size: 4 Laryngoscopy View: grade 1 (full cords) Intubation Adjuncts: stylet, video laryngoscope and fiberoptic Tube: double lumen Placement: oral Tube type: cuff - inflated Tube Size (FR): 37 Depth of Insertion (CM): 31 Measured From: teeth Cuff volume (mL): 5 Cuff Inflated With: air Number of Attempts: 1. Placement Verified By: direct visualization, bilateral breath sounds, chest auscultation, CO2 monitor and bronchoscope Tube secured with: adhesive tape. Dentition unchanged? Yes Difficult Airway? No. Procedure Start Time: 01/09/2024 9:21 AM. Staff Section Anesthesia Provider: Michelle Llanes APRN-FROZEN PIE MAKER, Performed the procedure Provider #1: Shannan England MD. Shannan England MD GENERAL ANESTHESIA O RDERABLES * TYPE + SCREEN PANEL (01/09/2024 8:07 AM MUD LOGGER) ABO Rh O POS 01/09/2024 8:58 AM MUD LOGGER [facility] Comment:History checked. Antibody Screen NEG 8:58 AM MUD LOGGER [facility] Blood Bank BLOOD SPECIMEN / Unknown Lab Venipuncture / Unknown 01/09/2024 8:07 AM MUD LOGGER 01/09/2024 8:24 AM MUD LOGGER Yoav Sanchez MD LAB - BLOOD BANK ORD ERABLES [facility] [address] [place] [address] * BLOOD TYPE VERIFICATION (01/09/2024 4:36 AM MUD LOGGER) ABO Rh O POS 01/09/2024 7:5 9 AM MUD LOGGER [facility] Blood Bank BLOOD SPECIMEN / Unknown Lab Venipuncture / Unknown 01/09/2024 4:36 AM MUD LOGGER 01/09/2024 7:25 AM MUD LOGGER Elli Rosado MD LAB - BLOOD BANK ORD ERABLES [facility] [address] [place] [address] * HCG BETA BLOOD QUANTITATIVE (01/09/2024 4:36 AM MUD LOGGER) hCG Quantitative <2.42 mIU/mL 01/09/20 7:52 AM MUD LOGGER [facility] Blood BLOOD SPECIMEN / Unknown Lab Venipuncture / Unknown 01/09/2024 4:36 AM MUD LOGGER 01/09/2024 5:20 AM MUD LOGGER Narrative [facility] - 01/09/2024 7:52 AM MUD LOGGER hCG Reference Range, mIU/mL: Males 0-2.0 Non Females 0-6.0 Perimenopausal Females ages 41-55* 0-7.7 Postmenopausal Females age >55* 0-14 Females, Weeks after Last Menstrual Period 0.2-1 week 5-50 1 - 2 weeks 50-500 2 - 3 weeks 100-5000 3 - 4 weeks 500-10,000 4 - 5 weeks 1000-50,000 5 - 6 weeks 10,000-100,000 6 - 8 weeks 15,000-200,000 2 - 3 months 10,000-100,000 Trophoblastic Disease >100,000 *In higher than expected hCG in females > age 40, a serum FSH >20 IU/L makes unlikely. Elli Rosado MD LAB - CHEMISTRY ALFREDO RAY [facility] Organization Address City/State/ZIP Co de Phone Number [facility] [address] [place] [address] * IR PLEURAL DRAIN (01/08/2024 2:38 PM MUD LOGGER) Anatomical Region Laterality Modality Chest X-Ray Angiograph y 01/08/2024 3:22 PM MUD LOGGER Impressions 01/08/2024 3:23 PM MUD LOGGER Impression: CT guided placement of a 14 Faroese APDL pigtail catheter in the left pleural space, as described above. Follow up: The catheter is open for external drainage into an atrium and record the output. The catheter removal can be performed depending upon patient clinical status and output. I, Dr. Quintero performed/was present throughout the procedure and provided the moderate sedation service. Please see nursing flow chart for more details. . > Interpreting Provider: Sampson Quintero MD on 01/08/2024 3:23 PM Narrative 01/08/2024 3:23 PM MUD LOGGER PROCEDURE: IR PLEURAL DRAIN DATE/TIME OF EXAM: 01/08/2024 2:51 PM CLINICAL INFORMATION: None relevant/not provided if blank. Indication: J90: Pleural effusion, not elsewhere classified Additional History: History: Patient with a right effusion/empyema for chest tube placement Operators: 1.Dr. Quintero, Attending Physician Dr. Amada Perez, IR resident Anesthesia: 1.Local anesthesia : 10 mL of 1 percent lidocaine Procedure: 1.Limited CT evaluation of right Chest. 2 ultrasound guided placement of 14 Faroese APDL pigtail in the left pleural space. Procedure in Detail: The procedure and possible complications were explained to the patient in detail, and informed consent was obtained. The patient was placed in a supine position on the ultrasound table and a limited ultrasound evaluation of pleural space. The limited USG evaluation demonstrated known pleural effusion. The marked site and skin around the region was prepped and draped in a sterile fashion. Local anesthesia was provided by the injection with 1% Lidocaine. A co-axial needle system was advanced in stages under real time ultrasound guidance. Upon aspiration, the out-sheath was advanced within the pleural space. A 0.035 wire was looped and following series of dilatation/exchanges a 14 Faroese APDL pigtail catheter was advanced. The initial aspirate was cloudy and approximately mount of fluid was drained. Appropriate amount of aspirate was sent for necessary laboratory work up. A final ultrasound imaging showed the catheter in satisfactory position. There is no immediate complication like hemorrhage noted. The patient tolerated the procedure well. The patient was transferred to holding area in stable condition. Procedure Note Sampson Quintero MD - 01/08/2024 PROCEDURE: IR PLEURAL DRAIN DATE/TIME OF EXAM: 01/08/2024 2:51 PM CLINICAL INFORMATION: None relevant/not provided if blank. Indication: J90: Pleural effusion, not elsewhere classified Additional History: History: Patient with a right effusion/empyema for chest tube placement Operators: 1.Dr. Quintero, Attending Physician Dr. Amada Perez, IR resident Anesthesia: 1.Local anesthesia : 10 mL of 1 percent lidocaine Procedure: 1.Limited CT evaluation of right Chest. 2 ultrasound guided placement of 14 Faroese APDL pigtail in the leftpleural space. Procedure in Detail: The procedure and possible complications were explained to the patient in detail, and informed consent was obtained. The patient was placed in a supine position on the ultrasound table marleny limited ultrasound evaluation of pleural space. The limited USGevaluation demonstrated known pleural effusion. The marked site and skin around the region was prepped and draped in a sterile fashion. Local anesthesia was provided by the injection with 1% Lidocaine. A co-axial needle system was advanced in stages under realtime ultrasound guidance. Upon aspiration, the out-sheath was advanced within the pleural space. A 0.035 wire was looped and following series of dilatation/exchanges a 14 Faroese APDL pigtail catheter was advanced.The initial aspirate was cloudy and approximately mount of fluid wasdrained. Appropriate amount of aspirate was sent for necessary laboratory work up. A final ultrasound imaging showed the catheter in satisfactory position. There is no immediate complication like hemorrhage noted. The patient tolerated the procedure well. The patient was transferred to holding area in stable condition. Impression: CT guided placement of a 14 Faroese APDL pigtail catheterin the left pleural space, as described above. Follow up: The catheter is open for external drainage into an atrium and record the output. The catheter removal can be performed depending upon patient clinical status and output. I, Dr. Quintero performed/was present throughout the procedure andprovided the moderate sedation service. Please see nursing flow chart for more details. . > Interpreting Provider: Sampson Quintero MD on 01/08/2024 3:23 PM Adelita Curiel SWETHA IR ORDERABLES * CYTOLOGY NON-EDUCATIONAL TECHNICIAN PANEL (STL) (01/08/2024 2:27 PM MUD LOGGER) Case Report Cytology Non Chemical Maker Report Case: [id number] Authorizing Provider: Melody Paniagua APRN-BRIMMER BLOCKER Collected: 01/08/2024 02:27 PM Ordering Location: [address] TELE Received: 01/08/2024 02:51 PM Pathologist: Fadi Saini MD Specimen: Pleural Fluid 01/09/2024 9:17 AM MUD LOGGER [facility] Final Diagnosis Pleural fluid, left: - Mixed (predominantly neutrophilic) cellular debris - Negative for carcinoma 01/09/2024 9:17 AM MUD LOGGER [facility] Clinical History J90; J18.9 01/09/2024 9:17 AM [facility] Gross Description Approximately 25 mL of light brown fluid is received. A Pap-stained ThinPrep slide and H&E-stained cell block sections are produced. GRW 01/09/2024 9:17 AM [facility] Microscopic Description In a Pap-stained ThinPrep slide as well as H&E-stained cell block sections, there is predominantly neutrophilic cellular debris. No large cohesive groups of malignant-appearing epithelium are seen. 01/09/2024 9:17 AM [facility] Pathologist Location at [facility] 01/09/2024 9:17 AM [facility] Disclaimer All histochemical and/or immunohistochemical results are interpreted with controls that demonstrate appropriate staining reactions before reporting results. Note on use of immunocytochemistry reagents: This test was developed and its performance characteristic determined by [facility], Department of Laboratory Medicine. It has not been cleared or approved by the U.S. Food and Drug Administration (FDA). The FDA has determined that such clearance or approval is not necessary. The test is used for clinical purpose. It should not be regarded as investigational or for research. This laboratory is certified to perform high complexity testing. The performance characteristics of the IHC/VIVIENNE assays have been validated on formalin-fixed paraffin embedded tissues only. The assays have not been validated on decalcified tissues. Results should be interpreted with caution. 01/09/2024 9:17 AM [facility] Embedded Images 01/09/2024 9:17 AM [facility] Pathology/Cytolo gy PLEURAL FLUID / Unknown Collection / Unknown 01/08/2024 2:27 PM MUD LOGGER 01/08/2024 2:51 PM MUD LOGGER Melody Paniagua SUSTAINABILITY ENGINEER-BRIMMER BLOCKER LAB - PATHOLOGY /CYTOLOGY ORDERABLES [facility] [address] [place] [address] * DIFFERENTIAL MANUAL FLUID (01/08/2024 2:26 PM MUD LOGGER) Fluid Source Pleural 01/08/2024 4:10 PM [facility] Body Fluid Total Cell Count 100 x10E6/L 01/08/2024 4:10 PM MUD LOGGER [facility] Neutrophils Fluid Percent 43 % 01/08/2024 4:10 PM MUD LOGGER [facility] Macrophages Fluid Percent 57 % 01/08/2024 4:10 PM MUD LOGGER [facility] Fluid PLEURAL FLUID / Unknown Collection / Unknown 01/08/2024 2:26 PM MUD LOGGER 01/08/2024 2:48 PM MUD LOGGER Narrative [facility] - 01/08/2024 4:10 PM MUD LOGGER No reference ranges established for body fluid differential cell counts. The test results must be integrated into the clinical context for interpretation. Melody Paniagua APRN-BRIMMER BLOCKER LAB - BODY FLUI D ORDERABLES Performing Organization Address [facility] Co de Phone Number [facility] [address] [place] [phone] * CELL COUNT W DIFFERENTIAL FLUID (01/08/2024 2:26 PM MUD LOGGER) Fluid Source Pleural 01/08/2024 4:10 PM MUD LOGGER [facility] Fluid Appearance CLOUDY 01/08/2024 4:10 PM MUD LOGGER [facility] Fluid Color YELLOW 01/08/2024 4:10 PM [facility] Total Nucleated Cells Fluid 138,160 Reference Range Not Established x10E6/L 01/08/2024 4:10 PM [facility] RBC Count Fluid 40,000 Reference Range Not Established x10E6/L 01/08/2024 4:10 PM [facility] Fluid PLEURAL FLUID / Unknown Collection / Unknown 01/08/2024 2:26 PM MUD LOGGER 01/08/2024 2:48 PM MUD LOGGER Narrative [facility] - 01/08/2024 4:10 PM MUD LOGGER No reference ranges established for body fluid cell counts. Any reference ranges provided are derived from published literature. The test results must be integrated into the clinical context for interpretation. Melody Paniagua SUSTAINABILITY ENGINEER-BRIMMER BLOCKER LAB - BODY FLUI D ORDERABLES Performing Organization Address [facility] [address]/[facility] Co de Phone Number [facility] [address] [place] [phone] * PROTEIN FLUID (01/08/2024 2:26 PM MUD LOGGER) Protein Fluid 3.5 Not Established For Fluids gm/dL 01/08/2024 3:48 PM MUD LOGGER [facility] Fluid Type Pleural 01/08/2024 3:48 PM MUD LOGGER [facility] Fluid PLEURAL FLUID / Unknown Collection / Unknown 01/08/2024 2:26 PM MUD LOGGER 01/08/2024 3:18 PM MUD LOGGER Narrative [facility] - 01/08/2024 3:48 PM MUD LOGGER Fluid Disclaimer No reference ranges are available for this specimen type, results may be inaccurate, assay designed for serum/plasma or urine. Assay was performed at client s request on a suboptimal specimen type. Test results should be interpreted with caution. Melody Paniagua [facility] LAB - BODY FLUI D ORDERABLES Performing Organization Address [facility] [address]/[facility] de Phone Number [facility] [address] [place] [phone] * ALBUMIN FLUID (01/08/2024 2:26 PM MUD LOGGER) Albumin Fluid 1.4 Not Established For Fluids gm/dL 01/08/2024 3:48 PM MUD LOGGER [facility] Fluid Type Pleural 01/08/2024 3:48 PM MUD LOGGER [facility] Fluid PLEURAL FLUID / Unknown Collection / Unknown 01/08/2024 2:26 PM MUD LOGGER 01/08/2024 3:18 PM MUD LOGGER Narrative [facility] - 01/08/2024 3:48 PM MUD LOGGER Fluid Disclaimer No reference ranges are available for this specimen type, results may be inaccurate, assay designed for serum/plasma or urine. Assay was performed at client s request on a suboptimal specimen type. Test results should be interpreted with caution. Melody Paniagua APRN-[facility] LAB - BODY FLUI D ORDERABLES Performing Organization Address City/[facility] [address]/[facility] Co de Phone Number [facility] [address] [place] [phone] * LDH FLUID (01/08/2024 2:26 PM MUD LOGGER) LDH Fluid >7,500 Not Established For Fluids U/L 01/08/2024 4:12 PM MUD LOGGER [facility] Fluid Type Pleural 01/08/2024 4:12 PM MUD LOGGER [facility] Fluid PLEURAL FLUID / Unknown Collection / Unknown 01/08/2024 2:26 PM MUD LOGGER 01/08/2024 3:18 PM MUD LOGGER Narrative [facility] - 01/08/2024 4:12 PM MUD LOGGER Fluid Disclaimer No reference ranges are available for this specimen type, results may be inaccurate, assay designed for serum/plasma or urine. Assay was performed at client s request on a suboptimal specimen type. Test results should be interpreted with caution. Melody Leonidas Austing SUSTAINABILITY ENGINEER-[employer] LAB - BODY FLUI D ORDERABLES Performing Organization Address [facility] [address]/[facility] Co de Phone Number [facility] [address] [place] [phone] * GLUCOSE FLUID (01/08/2024 2:26 PM MUD LOGGER) Glucose Fluid <5 Not Established For Fluids mg/dL 01/08/2024 3:48 PM MUD LOGGER [facility] Fluid Type Pleural 01/08/2024 3:48 PM MUD LOGGER [facility] Fluid PLEURAL FLUID / Unknown Collection / Unknown 01/08/2024 2:26 PM MUD LOGGER 01/08/2024 3:18 PM MUD LOGGER Narrative [facility] - 01/08/2024 3:48 PM MUD LOGGER Fluid Disclaimer No reference ranges are available for this specimen type, results may be inaccurate, assay designed for serum/plasma or urine. Assay was performed at client s request on a suboptimal specimen type. Test results should be interpreted with caution. Melody Austing SUSTAINABILITY ENGINEER-[employer] LAB - BODY FLUI D ORDERABLES Performing Organization Address City/[facility] [address]/ZIP Co de Phone Number [facility] [address] [place] [phone] * (ABNORMAL) STREP PNEUMONIAE ANTIGEN URINE (01/08/2024 3:10 AM MUD LOGGER) Streptococcus pneumoniae Antigen Urine Positive( A) Negative 01/09/2024 7:22 AM MUD LOGGER [facility] Urine URINE / Unknown Collection / Unknown 01/08/2024 3:10 AM MUD LOGGER 01/08/2024 3:19 AM MUD LOGGER Narrative [facility] - 01/09/2024 7:22 AM MUD LOGGER Patients who have received the Streptococcus pneumoniae vaccines may test positive in the 48 hours following vaccination. It is recommended to avoid testing within five days of receiving vaccination. Testing pediatric patients is discouraged because of their high rates of nasal colonization with Streptococcus pneumoniae leading to false positive results. Samples from patients taking antibiotics for more than 24 hours may cause false negatives. Aruna Sahni MD LAB - MICROBIOLOGY O KRIS Performing Organization Address [facility] [address]/[facility] Co de Phone Number [facility] [address] [place] [address], [facility] [phone] * LEGIONELLA ANTIGEN URINE (01/08/2024 3:10 AM MUD LOGGER) Legionella Antigen Urine Negative Negative 01/09/2024 7:53 AM MUD LOGGER [facility] Urine URINE / Unknown Collection / Unknown 01/08/2024 3:10 AM MUD LOGGER 01/08/2024 3:19 AM MUD LOGGER [facility] - 01/09/2024 7:53 AM MUD LOGGER This assay detects Legionella pneumophila serogroup one (1) antigen. A negative test result does not rule out the possibility of Legionella infection due to other serogroups or species of Legionella. A positive result may indicate a recent or remote infection with serogroup 1. Aruna Sahni MD LAB - MICROBIOLOGY Harmeet PONCE Performing Organization Address City/[facility] [address]/ZIP Co de Phone Number [facility] [address] [place] [address], [facility] [phone] * MRSA DNA PCR (01/08/2024 2:45 AM MUD LOGGER) MRSA DNA by PCR Not detected Not detected 01/08/2024 11:24 AM [facility] Microbiology SPECIMEN FROM NASAL FOSSAE / Unknown Collection / Unknown 01/08/2024 2:45 AM MUD LOGGER 01/08/2024 3:21 AM MUD LOGGER Narrative [facility] - 01/08/2024 11:24 AM MUD LOGGER Methicillin-resistant Staphylococcus aureus (MRSA) DNA is not detected (presumed not colonized with MRSA). Aruna Sahni MD LAB - MICROBIOLOGY O KRIS Performing Organization Address [facility] [address]/[facility] Co de Phone Number [facility] [address] [address], [facility] [phone] * CULTURE BLOOD (01/07/2024 11:01 AM MUD LOGGER) Only the most recent of2 resultswithin the time period is included. Pathologist [facility] Culture No growth day 5 AL 01/12/2024 5:30 PM MUD LOGGER [facility] Blood PERIPHERAL BLOOD / Unknown Lab Venipuncture / Unknown 01/07/2024 11:01 AM MUD LOGGER 01/07/2024 11:13 AM MUD LOGGER Aruna Sahni MD LAB - MICROBIOLOGY O KRIS Performing Organization Address [facility] [address]/[facility] de Phone Number [facility] [address] [place] [address], [facility] [phone] * SLIDE SCAN HEMATOLOGY (01/07/2024 10:55 AM MUD LOGGER) Pathologist [facility] RBC Morphology NORMAL 01/07/2024 12:06 PM MUD LOGGER [facility] Platelet Morphology NORMAL 01/07/2024 12:06 PM MUD LOGGER [facility] Blood BLOOD SPECIMEN / Unknown Lab Venipuncture / Unknown 01/07/2024 10:55 AM MUD LOGGER 01/07/2024 11:14 AM MUD LOGGER Aruna Sahni MD LAB - HEMATOLOGY ORD ERABLES Performing Organization Address City/[facility] [address]/ZIP Co de Phone Number [facility] [address] [place] [address] * (ABNORMAL) VITAMIN B12 (01/07/2024 10:55 AM MUD LOGGER) Pathologist [facility] Vitamin B12 >2,000(H) 213 - 816 pg/mL 01/07/2024 10:36 PM MUD LOGGER [facility] Blood BLOOD SPECIMEN / Unknown Lab Venipuncture / Unknown 01/07/2024 10:55 AM MUD LOGGER 01/07/2024 11:14 AM MUD LOGGER Aruna Sahni MD LAB - CHEMISTRY ALFREDO RAY [facility] [address] [place] [phone] * PTT (01/07/2024 3:16 AM MUD LOGGER) PTT 26.6 23.0 - 38.4 sec 01/07/2024 4:09 AM MUD LOGGER [facility] Blood BLOOD SPECIMEN / Unknown Lab Venipuncture / Unknown 01/07/2024 3:16 AM MUD LOGGER 01/07/2024 3:46 AM MUD LOGGER Narrative [facility] - 01/07/2024 4:09 AM MUD LOGGER Heparin Therapeutic Range for PTT: 69.0 - 110.0 seconds. Rashawn Monet MD LAB - COAGULATION OR DERABLES Performing Organization Address [facility] [address]/ZIP Co de Phone Number [facility] [address] [place], [place] [phone] * (ABNORMAL) PT-INR (01/07/2024 3:16 AM MUD LOGGER) PT 15.4(H) 12.1 - 14.8 sec 01/07/2024 4:09 AM MUD LOGGER [facility] INR 1.2(H) 0.9 - 1.1 01/07/2024 4:09 AM MUD LOGGER [facility] Blood BLOOD SPECIMEN / Unknown Lab Venipuncture / Unknown 01/07/2024 3:16 AM MUD LOGGER 01/07/2024 3:46 AM MUD LOGGER Narrative [facility] - 01/07/2024 4:09 AM MUD LOGGER Conventional Warfarin Anticoagulant Therapy: INR Reference Range: 2.0-3.0 Intensive Warfarin Anticoagulant Therapy: INR Reference Range: 2.5-3.5 Rashawn Monet MD LAB - COAGULATION OR DERABLES Performing Organization Address City/[facility] [address]/ZIP Co de Phone Number [facility] [address] [place], [place] [phone] * (ABNORMAL) HYDROXYBUTYRATE BETA (01/07/2024 3:15 AM [facility]) Pathologist [facility] Beta-Hydroxybu tyrate 1.40(H) <0.50 mmol/L 01/07/2024 4:21 AM [facility] Blood BLOOD SPECIMEN / Unknown Lab Venipuncture / Unknown 01/07/2024 3:15 AM MUD LOGGER 01/07/2024 3:46 AM [facility] - 01/07/2024 4:21 AM [facility] Results >1.5 mmol/L may be indicative of diabetic ketoacidosis. Use in conjunction with Serum Glucose levels. Rashawn Monet MD LAB - CHEMISTRY ALFREDO RAY [facility] Organization Address City/State/ZIP Co de Phone Number [facility] [address] [place] [address] * (ABNORMAL) COMPREHENSIVE METABOLIC PANEL (01/07/2024 3:15 AM [facility]) [facility] Glucose 97 70 - 105 mg/dL 01/07/2024 4:25 AM [facility] Sodium 133(L) 136 - 145 mmol/L 01/07/2024 4:25 AM [facility] Potassium 3.5 3.5 - 5.1 mmol/L 01/07/2024 4:25 AM [facility] Chloride 100 98 - 107 mmol/L 01/07/2024 4:25 AM [facility] CO2 19(L) 22 - 29 mmol/L 01/07/2024 4:25 AM [facility] Calcium 8.9 8.4 - 10.4 mg/dL 01/07/2024 4:25 AM [facility] Anion Gap 14 6 - 16 mmol/L 01/07/2024 4:25 AM [facility] BUN 40(H) 5.3 - 18.7 mg/dL 01/07/2024 4:25 AM [facility] Creatinine 1.11 0.57 - 1.11 mg/dL 01/07/2024 4:25 AM [facility] Alkaline Phosphatase 302(H) 40 - 150 U/L 01/07/2024 4:25 AM [facility] ALT 14 0 - 55 U/L 01/07/2024 4:25 AM MUD LOGGER [facility] AST 18 5 - 34 U/L 01/07/2024 4:25 AM [facility] Protein Total 5.7(L) 6.4 - 8.3 gm/dL 01/07/2024 4:25 AM [facility] Albumin 1.7(L) 3.4 - 5.0 gm/dL 01/07/2024 4:25 AM [facility] Bilirubin Total 0.7 0.2 - 1.2 mg/dL 01/07/2024 4:25 AM [facility] eGFR by CKD-EPI 65(L) >=90 mL/min/1.7 3 m2 01/07/2024 4:25 AM [facility] Blood BLOOD SPECIMEN / Unknown Lab Venipuncture / Unknown 01/07/2024 3:15 AM MUD LOGGER 01/07/2024 3:46 AM MUD LOGGER Rashawn Monet MD LAB - CHEMISTRY ALFREDO RAY Performing Organization Address City/[facility] [address]/ZIP Co de Phone Number [facility] [address] [place] [phone] * (ABNORMAL) LDH BLOOD (01/07/2024 3:15 AM MUD LOGGER) LDH 232(H) 125 - 220 U/L 01/07/2024 4:20 AM MUD LOGGER [facility] Blood BLOOD SPECIMEN / Unknown Lab Venipuncture / Unknown 01/07/2024 3:15 AM MUD LOGGER 01/07/2024 3:46 AM MUD LOGGER Rashawn Monet MD LAB - CHEMISTRY ALFREDO RAY [facility] [address] [place] [phone] * LACTIC ACID BLOOD (01/07/2024 3:14 AM MUD LOGGER) Lactic Acid 1.0 <=2 mmol/L 01/07/2024 4:01 AM MUD LOGGER [facility] Blood BLOOD SPECIMEN / Unknown Lab Venipuncture / Unknown 01/07/2024 3:14 AM MUD LOGGER 01/07/2024 3:42 AM MUD LOGGER Rashawn Monet MD LAB - CHEMISTRY ALFREDO RAY [facility] [address] [phone] * FLOW CYTOMETRY BODY FLUID (01/06/2024 5:03 PM MUD LOGGER) Case Report Flow Cytometry Case: [id number] Authorizing Provider: Jaden Castle Collected: 01/06/2024 05:03 PM MD Jd Ordering Location: [facility] Pathology Lab Received: 01/07/2024 11:56 AM Pathologist: Serina Mccoy MD Specimen: Pleural Fluid, LEFT 01/07/2024 2:34 PM [facility] Final Diagnosis Pleural fluid, flow cytometry: - Too few white blood cells for flow cytometry 01/07/2024 2:34 PM [facility] Flow Cytometry Interpretation A cytospin prepared from the flow cytometry specimen has been reviewed for quality control lead purposes. The cellularity represents exclusively macrophage-appear ing cells. 01/07/2024 2:34 PM [facility] Flow Cytometry Results Too few white blood cells for flow cytometric analysis. 01/07/2024 2:34 PM [facility] Client Specimen ID # [id number] 01/07/2024 2:34 PM [facility] Reason for test Pleural condition, unspecified 01/07/2024 2:34 PM [facility] Pathologist Location at [facility] 01/07/2024 2:34 PM [facility] Disclaimer Test performed at [facility], [address] [place] [address], [id number]. *The established laboratory minimum viability is 70%. [...] high complexity clinical testing. 01/07/2024 2:34 PM [facility] LAB Embedded Images 2:34 PM [facility] Fluid PLEURAL FLUID / Unknown 01/06/2024 5:03 PM MUD LOGGER 01/07/2024 11:56 AM MUD LOGGER Jaden Castle MD LAB - PATHO LOGY/CYTOLOGY ORDERABLES Performing Organization Address City/State/[facility] Co de Phone Number [facility] [facility] [address] [phone] * DERMATOPATHOLOGY (05/17/2021 3:33 AM CDT) Case Report Dermatopathology Report Case: [id number] Authorizing Provider: Titi Mendoza MD Collected: 05/17/2021 03:33 AM Ordering Location: [facility] Received: 05/19/2021 05:51 AM Pathologist: Lauren Tuttle MD Specimen: Skin, rigth calf 4:26 PM CDT DERMATOPATHOLOGY LABORATORY Final Diagnosis Specimen A. SKIN, rigth calf: DERMATOFIBROMA (D23.9) PRESENT AT MARGIN 4:26 PM T DERMATOPATHOLOGY LABORATORY Clinical History DF. Check margins. Path # [id number]. 4:26 PM CDT DERMATOPATHOLOGY LABORATORY Gross Description Specimen A: Received is one formalin filled container labeled with the patient's name and designated rigth calf. The specimen consists of a punch excision measuring [id number], bisected. The margin is inked green. Jar 0. 4:26 PM CDT DERMATOPATHOLOGY LABORATORY Microscopic Description Specimen A. SKIN, rigth calf: There is epidermal hyperplasia. Within the dermis, there are fibrohistiocytic cells in haphazard array among coarse collagen bundles. This lesion is present at the margin of the specimen. 1 4:26 PM CDT DERMATOPATHOLOGY LABORATORY Disclaimer An external and internal positive and negative controls are appropriate for the histochemical, immunohistochemical and immunofluorescence stain(s) in this case (if any), except where stated explicitly. The performance characteristics of the stain(s) cited in this report were developed and its performance characteristic determined by the Dermatopathology Laboratory at [facility], directed by Dr. Jelly Angelo. These tests need not be, and therefore are not, approved by the [place] Food and Drug Administration. The tests are used for clinical purposes. Billing Codes Specimen Charges Stain Charges 52660 1 1 4:26 PM CDT DERMATOPATHOLOGY LABORATORY Embedded Images 1 4:26 PM CDT DERMATOPATHOLOGY LABORATORY Pathology/Cytolo gy TISSUE SPECIMEN FROM SKIN / Unknown 05/17/2021 3:33 AM CDT 05/19/2021 5:51 AM CDT Titi Mendoza MD LAB - PATHOLOGY/CYTO LOGY ORDERABLES DERMATOPATHOLOGY LABORATORY [facility] - Department of Dermatology [facility] Medicine [address] [place] [address], [address] [phone] Care Teams Edger Saw Operator Relationship Specialty Start Date End Date Felicia Timmons MD [address] [place] [address] PCP - General Family Medicine 07/07/24
--- OUTSIDE RECORDS SUMMARY | 2025-01-30 14:20 | XMS_ITS | Clinical Summary ---
Author Organization [facility] [address] Address [address] [place] [address] Care Team Providers Care Antiquer Name Role Phone Teri Berman Primary Care Provider [phone] Allergies No known active allergies Medications methylPREDNISol one (MEDROL DOSEPACK) 4 mg DosepackIndicat ions:Anti-infla mmatory follow package directions 1 packet 0 Active ALPRAZolam (XANAX) 0.5 mg tablet TK 1 T PO BID PRN 0 Active amoxicillin (AMOXIL) 875 mg tablet TK 1 T PO BID FOR 10 DAYS 0 Active Active Problems No known active problems Surgical History Surgery Date Site/Laterality Comments COMBINED AUGMENTATION MAMMAPLASTY AND ABDOMINOPLASTY Medical History Medical History Date Comments Allergic rhinitis Anxiety Hypertension Family History Medical History Relation Name Comments Asthma Mother Relation Name Status Comments Mother Social History Tobacco Use Types Packs/Day Years Used Date Smoking Tobacco: Every Day E-cigarettes Smokeless Tobacco: Never Personal Safety Answer Date Recorded Have you ever been in or are you currently in a harmful physical or emotional relationship or is someone making you feel afraid or unsafe? Denies 12/13/2023 Comments Unknown Sex and Gender Information Value Date Recorded Sex Assigned at Not on file Legal Sex Female 1:42 PM CDT Gender Identity Not on file Sexual Orientation Not on file Obstetrics History Last Filed Vital Signs Vital Sign Reading Time Taken Comments Blood Pressure 113/83 12/13/2023 2:30 PM HTML WEB DEVELOPER Pulse 92 12/13/2023 2:30 PM HTML WEB DEVELOPER Temperature 36.4 C (97.6 F) 12/13/2023 10:17 AM HTML WEB DEVELOPER Respiratory Rate 16 12/13/2023 2:00 PM HTML WEB DEVELOPER Oxygen Saturation 98% 12/13/2023 2:30 PM HTML WEB DEVELOPER Inhaled Oxygen Concentration - - Weight 61.2 kg (135 lb) 07/26/2020 2:40 PM CDT Height 165.1 cm (5' 5 ) 07/26/2020 2:40 PM CDT Body Mass Index 22.47 07/26/2020 2:40 PM CDT Plan of Treatment Health Maintenance Due Date Last Done Comments Breast Cancer Screening-Mammogram 1984 Cervical Cancer Screening 1984 Depression Screening 1984 Hepatitis C Screening 1984 DTaP/Tdap/Td Vaccine (1 - Tdap) 1995 Varicella Vaccines (1 of 2 - 13+ 2-dose series) 1997 Hepatitis B Screening 2002 Regular Well Visit/Exam 18-64 2002 Pneumococcal vaccine <65 (1 of 2 - PCV) 2003 Covid-19 Vaccine (3 - season) 2024 03/16/2021, 02/16/2021 Influenza Vaccine (#1) 2024 8, 10/06/2017, 09/11/2014, Additional history exists HPV Vaccines Aged Out No longer eligi ble based on patient's age to complete this topic Insurance [facility] H[facility]PPO Address: [address] [address] [place] [address] [facility] [employer] UHC CHOICE PLUS [facility] H[facility]/PPO Address: [address] [address] [place] [address] [facility] Care Teams Antiquer Relationship Specialty Start Date End Date Teri Berman PA [address] [place] [id number] PCP - General Family Practice 07/21/20
--- OUTSIDE RECORDS SUMMARY | 2025-01-30 14:20 | XMS_ITS | Clinical Summary ---
Author Organization [facility] Address [address] [place] [address] Care Team Providers Care Slab Miller Operator Name Role Phone Felicia Timmons MD Primary Care Provider [phone] Source Comments [facility],non-owned Affiliates and Associated Physician Practices is amultiple site organization consisting of ambulatory clinics and hospital sitesin [place], [place] and [place]. This disclosure is being madepursuant to the Care Everywhere program and may not contain all information available regarding this patient. Last updated [employer] Allergies Active Allergy Reactions Criticality Noted Date [...] Recorded Patient Health Questionnaire-2 Score 0 01/29/2024 [facility] [place] of Occupat ional Health - Occupational Stress [...] place to sleep or slept in a [place] health care facility (including now)? No 01/12/2024 Sex and Gender Information Value Date Recorded Sex Assigned at Not on file Gender Identity Not on file Sexual Orientation Not on file Last Filed Vital Signs Vital Sign Reading Time Taken Comments Blood Pressure 124/77 09/22/2024 10:38 AM CDT Pulse 73 09/22/2024 10:38 AM CDT Temperature 36.6 C (97.9 F) 01/29/2024 9:50 AM MARKET RESEARCH SENIOR PROJECT MANAGER Respiratory Rate 18 01/31/2024 10:29 AM MARKET RESEARCH SENIOR PROJECT MANAGER Oxygen Saturation 97% 01/31/2024 10:29 AM MARKET RESEARCH SENIOR PROJECT MANAGER Inhaled Oxygen Concentration - - Weight 68 kg (150 lb) 09/22/2024 10:38 AM CDT Height 165.1 cm (5' 5 ) 09/22/2024 10:38 AM CDT Body Mass Index 24.96 09/22/2024 10:38 AM CDT Plan of Treatment Health Maintenance Due Date Last Done Comments LIPID TESTING 1984 MAMMOGRAM 1984 PAP SMEAR 1984 HEPATITIS C SCREENING 11/18/2002 HEPATITIS B VACCINE (1 of 3 - 19+ 3-dose series) 2003 PNEUMOCOCCAL VACCINE (1 of 2 - PCV) 2003 ZOSTER VACCINE (1 of 2) 2003 COVID-19 VACCINE ( - season) 2024 08/07/2022, 10/28/2021, 03/16/2021, Additional history exists INFLUENZA VACCINE (#1) 2024 , 09/16/2021, 09/23/2018, Additional history exists DEPRESSION SCREENING 11/25/2024 01/29/2024 DTAP/TDAP/TD VACCINES (2 - Td or Tdap) 10/28/2031 10/28/2021 HIV SCREENING Completed 01/12/2024 HIB VACCINE Aged Out No longer eligi ble based on patient's age to complete this topic HPV VACCINE Aged Out No longer eligi ble based on patient's age to complete this topic MENINGOCOCCAL (Group B) VACCINE Aged Out No longer eligible based on patient's age to complete this topic MENINGOCOCCAL VACCINE Aged Out No vee jose eligible based on patient's age to complete this topic Procedures Procedure Name Priority Date/Time Associated Diagnosis Comments HIV-1 HIV-2 ANTIBODY + HIV P24 AG PANEL Routine 01/12/2024 11:58 AM MARKET RESEARCH SENIOR PROJECT MANAGER from Last 3 Months or Most Recently Relevant to Health Maintenance Results * HIV-1 HIV-2 ANTIBODY + HIV P24 AG PANEL (01/12/2024 11:58 AM MARKET RESEARCH SENIOR PROJECT MANAGER) HIV1/2 Ab + P24 Ag Non Reactive Non Reactive 01/12/2024 12:56 PM MARKET RESEARCH SENIOR PROJECT MANAGER [facility] Blood BLOOD SPECIMEN / Unknown Lab Venipuncture / Unknown 01/12/2024 11:58 AM MARKET RESEARCH SENIOR PROJECT MANAGER 01/12/2024 12:18 PM MARKET RESEARCH SENIOR PROJECT MANAGER Narrative [facility] - 01/12/2024 12:56 PM MARKET RESEARCH SENIOR PROJECT MANAGER No Laboratory evidence of HIV infection. Yoav Sanchez MD LAB - CHEMISTRY ALFREDO RAY [facility] [address] [place] [address] from Last 3 Months or Most Recently Relevant to Health Maintenance Advance Directives * Full Code (Latest Code Status on File) Date Activated Date Inactivated Comments 01/12/2024 9:39 PM 01/16/2024 3:55 PM * Full Code Date Activated Date Inactivated Comments 01/07/2024 9:46 AM 01/12/2024 8:58 PM Care Teams Slab Miller Operator Relationship Specialty Start Date End Date Felicia Timmons MD [address] [place] [phone] PCP - General Family Medicine 07/07/24
--- OUTSIDE RECORDS SUMMARY | 2025-01-30 14:20 | XMS_ITS | Referral Summary ---
Author Organization [facility] [address] Address [address] [place] [address] Care Team Providers Care Senior Site Manager Name Role Phone Teri Berman Primary Care Provider [phone] Allergies No known active allergies Medications methylPREDNISol one (MEDROL DOSEPACK) 4 mg DosepackIndicat ions:Anti-infla mmatory follow package directions 1 packet 0 Active ALPRAZolam (XANAX) 0.5 mg tablet TK 1 T PO BID PRN 0 Active amoxicillin (AMOXIL) 875 mg tablet TK 1 T PO BID FOR 10 DAYS 0 Active Active Problems No known active problems Social History Tobacco Use Types Packs/Day Years [...] Comments Blood Pressure 113/83 12/13/2023 2:30 PM INFECTION CONTROL RN Pulse 92 12/13/2023 2:30 PM INFECTION CONTROL RN Temperature 36.4 C (97.6 F) 12/13/2023 10:17 AM INFECTION CONTROL RN Respiratory Rate 16 12/13/2023 2:00 PM INFECTION CONTROL RN Oxygen Saturation 98% 12/13/2023 2:30 PM INFECTION CONTROL RN Inhaled Oxygen Concentration - - Weight 61.2 kg (135 lb) 07/26/2020 2:40 PM CDT Height 165.1 cm (5' 5 ) 07/26/2020 2:40 PM CDT Body Mass Index 22.47 07/26/2020 2:40 PM CDT Plan of Treatment Not on file Insurance [facility] [place] [address] [place] [address] [employer] [facility] CHOICE PLUS [facility] [employer] Care Teams Senior Site Manager Relationship Specialty Start Date End Date Teri Berman PA [address] [place] [id number] PCP - General Family Practice 07/21/20
[2025-01-30 14:26] VITALS: BP 134/86; PULSE 100; RESP 18; TEMP 35.9; O2SAT 97
--- NOTE | 2025-01-30 14:35 | ED.URI ---
HPI - URI/Sore Throat General Chief Complaint: Upper Respiratory Infection Stated Complaint: asthma Source: patient and family (Son) Mode of arrival: ambulatory Limitations: no limitations History of Present Illness HPI Narrative: 39-year-[facility] of asthma flare up including symptoms of shortness of breath, wheezing and cough for the past 2-3 days. Patient reports that she started with cold-like symptoms worsen flared up her asthma few days ago. Patient reports long history of asthma and has been using albuterol nebulizer and inhaler with little relief. Patient reports that she last needed oral prednisone approximately 8 weeks ago. Patient reports that this generally improves her symptoms. Patient does have a statistical consultant that she sees for her chronic asthma. Patient denies fever, body aches, chills, nausea vomiting or diarrhea. Patient reports that she has been attempting to call her primary care provider's exchange but has not been able talk to a provider MD elicited complaint: cough and other (Shortness of breath, wheezing) Pertinent past history: asthma Onset (ago): day(s) (2-3) Able to tolerate fluids by mouth: Yes Related Data Home Medications ?Medication ?Instructions ?Recorded ?Confirmed ?Last Taken ?Type escitalopram oxalate 20 mg tablet 20 mg PO DAILY 02/28/24 09/14/24 Unknown History (Lexapro) budesonide 160 mcg-glycopyr 9 inh inhalation 05/26/24 09/14/24 Unknown History mcg-formot 4.8 mcg/actuation HFA inhaler (Breztri Aerosphere) montelukast 10 mg tablet 10 mg PO DAILY PRN 05/26/24 09/14/24 Unknown History Allergies Allergy/AdvReac Type Severity Reaction Status Date / Time levofloxacin (From Levaquin) Allergy Mild Rash Verified 01/30/25 14:30 oseltamivir (From Tamiflu) Allergy Mild Rash Verified 01/30/25 14:30 Review of Systems Constitutional: Constitutional: Denies chills, Denies fatigue, Denies fever(s) and Denies weakness ENT: Denies dizziness, Denies nasal congestion and Denies sore throat Respiratory: Respiratory: Denies chest congestion, Reports cough, Reports dyspnea and Reports wheezing Gastrointestinal: Gastrointestinal: Denies diarrhea, Denies nausea and Denies vomiting Integumentary/Breasts: Skin/Breast: Denies pruritus, Denies erythema and Denies rash Neurologic: Denies dizziness, Denies syncope and Denies headache(s) PENDING SALE TO [facility] Past Medical History Medical History Weight loss counseling, encounter for Wheezing Asthma URI (upper respiratory infection) Hypertension Anxiety Allergies Surgical History Surgical History History of delivery X2 Family History Family History Mother Hypertension Depression COPD (chronic obstructive pulmonary disease) Grandparent Hypertension Cerebrovascular accident Depression Grandparent Hypertension Cerebrovascular accident Social History Social History Smoking packs per day: 1 Smoking cigarettes per day: 20.0 Years smoked: 10 Smoking pack-years: 10.00 Smoking status: Former smoker Tobacco type: cigarettes and e-cigarettes/vaping Smoking end date: 11/25/21 Alcohol intake: never Substance use: never Substance use type: does not use Lack of Transportation: No Lack of Food: Never True Current Housing: I Have Housing Concerned About Future Housing: No Difficulty Paying Gas/Electric Bills: No Difficulty Paying for Meds: No Currently Unemployed: No Education: High School Diploma/GED Difficulty w/ Childcare or Family Care: No Living arrangements: with family Occupation/Education: occupation 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 There is no relevant family history pertinent to the presenting complaint. Exam Const: General: healthy appearing and no acute distress Nutritional Appearance: well nourished Orientation/consciousness: patient oriented x3 Limitations: no limitations HENMT: Head: normal to inspection Ears: external ears normal, TM's normal bilaterally and EAC's normal Face/Nose/Sinus: Normal external nose present Mouth: Yes Normal oral and palatal mucosa present, Yes lip normal and Yes moist mucous membranes Throat: posterior oropharynx normal and uvula midline Eyes: Conjunctivae: conjunctivae normal Neck: Neck: normal visual inspection Resp: Effort & Inspection: normal respiratory effort and not labored Auscultation: wheezes expiratory wheezes and throughout Cardio: Rate: regular rate Rhythm: regular rhythm Heart sounds: no murmurs Skin: General skin exam: normal color Rashes: no rashes Neuro: General: patient oriented x3 and moves all extremities Speech: normal speech Extrem: General: normal to inspection Psych: Mental Status: mental status grossly normal Affect: normal affect Attitude: cooperative Course Course Level of Care: Express Care Visit Vital Signs Vital signs: Vital Signs Temperature 35.9 C L 01/30/25 14:26 Pulse Rate 100 01/30/25 14:26 Respiratory Rate 18 01/30/25 14:26 Blood Pressure 134/86 01/30/25 14:26 Pulse Oximetry 97 01/30/25 14:26 Oxygen Delivery Room Air 01/30/25 14:26 Temperature 35.9 C L 01/30/25 14:26 Pulse Rate 100 01/30/25 14:26 Respiratory Rate 18 01/30/25 14:26 Blood Pressure 134/86 01/30/25 14:26 Pulse Oximetry 97 01/30/25 14:26 Oxygen Delivery Room Air 01/30/25 14:26 MDM - URI/Sore Throat MDM Narrative Medical decision making narrative: Discuss symptoms with patient. Patient declines chest x-ray at this time. Patient understands importance of following up with statistical consultant or primary care provider on Saturday. Patient understands importance of proceeding to the emergency room if symptoms worsen. Instructed patient to continue to use albuterol nebulizer and inhaler as needed. Differential Diagnosis Differential diagnosis: Likely otitis media, sinusitis and viral infection Critical Care Time Critical Care Time Critical Care Time: No Discharge Plan Discharge Clinical Impression: Asthma Qualifiers: Asthma severity: mild Asthma persistence: intermittent Asthma complication type: unspecified Qualified Code(s): J45.20 - Mild intermittent asthma, uncomplicated Patient Disposition: Home, Self-Care Condition: Stable Instructions: Asthma (ED) Additional Instructions: Take prednisone as prescribed Continue albuterol nebulizer and inhaler as needed Follow-up with primary care provider or statistical consultant on Saturday Monitor symptoms closely and proceed to the emergency room symptoms worsen Patient Language: Zambian Prescriptions: New prednisone 50 mg tablet 50 mg PO DAILY 5 Days Qty: 5 0RF No Action Breztri Aerosphere 160-9-4.8 mcg/actuation HFA aerosol inhaler inhalation montelukast 10 mg tablet 10 mg PO DAILY PRN fluconazole See Rx Instructions .ROUTE .COMPLEX Qty: 60 0RF Rx Instructions: 30mg in each irrigation bottle, include budesonide vial as well. Rinse with two bottles per day for one month. escitalopram oxalate [Lexapro] 20 mg tablet 20 mg PO DAILY clobetasol 0.05 % cream 1 applic topical BID PRN (Reason: rash) Qty: 45 2RF Zepbound 2.5 mg/0.5 mL pen injector 2.5 mg subcut WEEKLY Qty: 2 0RF Rx Instructions: for 4 weeks amoxicillin 875 mg tablet 875 mg PO Q12H Qty: 20 0RF prednisone 50 mg tablet 50 mg PO DAILY Qty: 5 0RF promethazine-DM 6.25-15 mg/5 mL syrup 5 ml PO Q4-6H PRN (Reason: cough) Qty: 118 0RF albuterol sulfate 90 mcg/actuation HFA aerosol inhaler 2 puff inhalation PRN PRN (Reason: sob) Qty: 8.5 2RF Rx Instructions: INHALE 1 PUFF EVERY 4 HOURS NEEDED FOR SHORTNESS OF BREATH OR WHEEZING Follow-up/Referrals: Jamison Timmons MD [Primary Care Provider] -
== END 2025-01-30 14:51 | disposition home or self-care (01) ==
PROVIDERS: Emergency Provider Nurse Practitioner Family; PCP Family Medicine
DX: J45.20 Mild intermittent asthma, uncomplicated (principal); Z87.891 Personal history of nicotine dependence
CPT/HCPCS: 99213; G0463

== ENCOUNTER 2025-02-08 13:36 | Outpatient (CLI) | payer OTHER, SELFPAY ==
--- NOTE | ~2025-02-08 | XR_ITS ---
Clinical Indication: Pneumonia PA and lateral views of the chest: Comparison: 01/06/2024 Findings: The lungs are clear, without evidence of focal consolidation or pleural effusion. Cardiome diastinal silhouette is within normal limits. Bones and soft tissues are unremarkable. Impression: Normal chest. Reviewed, dictated and finalized at location . Impression: Normal chest.
== END 2025-02-08 13:37 | disposition home or self-care (01) ==
PROVIDERS: PCP Family Medicine; Visit Provider Allergy & Immunology
DX: J18.9 Pneumonia, unspecified organism (principal)
CPT/HCPCS: 71046

== ENCOUNTER 2025-04-23 08:38 | Outpatient (CLI) | payer OTHER, SELFPAY ==
--- NOTE | ~2025-04-23 | CT_ITS ---
CT Scan of the Chest without Contrast: Clinical Indication: Bronchiectasis Technique: Contiguous sections were acquired throughout the chest without intravenous contrast. Dose reduction technique was used on this scan by utilizing automated exposure control and iterative recon struction technique. The dose-length product (DLP) was 158.02 mGy-cm. COMPARISON: 03/15/2024 Findings: There is no evidence of any significant mediastinal, hilar or axillary lymphadenopathy. The mediastin al soft tissues appear normal. There is no evidence of pleural or pericardial effusion. There is mild bronchiectatic change in the right middle lobe and anterior basal left lower lobe. Ther e is probable chronic atelectasis or scarring in the lingula, anterior basal left lower lobe, and med ial right middle lobe. Minimal tree-in-bud opacities are present in the anteroinferior right upper lo be. Questionable minimal tree-in-bud opacities in the left lower lobe. Decreased rounded atelectasis in the posterior left lung base. Images through the upper abdomen reveal no abnormalities. Impression: Findings compatible with probable acute on chronic small airways infection, as detailed above. There are minimal tree-in-bud opacities in the anteroinferior right upper lobe and left lower lobe. There a re areas of chronic scarring and/or atelectasis at the lung bases, as above with minimal bronchiectat ic change. Reviewed, dictated and finalized at location . Impression: Findings compatible with probable acute on chronic small airways infection, as detailed above. There are minimal tree-in-bud opacities in the anteroinferior r ight upper lobe and left lower lobe. There are areas of chronic scarring and/or atelectasis at the lung bases, as above with minimal bronchiectatic change.
== END 2025-04-23 08:39 | disposition home or self-care (01) ==
LOC: MICIMG 08:40
PROVIDERS: PCP Family Medicine; Visit Provider Allergy & Immunology
DX: J47.9 Bronchiectasis, uncomplicated (principal); R91.8 Other nonspecific abnormal finding of lung field
CPT/HCPCS: 71250